=== PATIENT | female | born 2005 | race Caucasian/White ===

== ENCOUNTER 2023-02-05 05:26 | Emergency (ER) | payer OTHER, SELFPAY ==
[2023-02-05 05:27] VITALS: BP 119/81; PULSE 96; RESP 14; TEMP 36.3; O2SAT 100
[2023-02-05] MEDS: LIDOCAINE, EPINEPHRINE, TETRACAINE VISCOUS SOLN 3 ML TOPICAL (07:39)
[2023-02-05] MEDS: KETOROLAC 30 MG/ML VIAL (*BKC) IM (07:39)
[2023-02-05] MEDS: LIDOCAINE HCL 1% LOCAL INJ 10 ML VIAL 20 ML INFILTRATE (07:39)
--- NOTE | 2023-02-05 08:28 | ED.WOUNDLAC ---
HPI - Wound/Laceration General Chief Complaint: Wound/Laceration Stated Complaint: wounds to face Time Seen by Provider: 02/05/23 07:02 History of Present Illness HPI narrative: This is a 17-year-old female, with no significant past medical history, presenting to the emergency department complaining of 2 painful lesions on the face for the past 2 days. Patient states the lesion started small and began growing. She has some pain with raising the eyebrow on the left but denies loss of vision or pain with movement of the eye itself. She denies associated fevers, chills, nausea, vomiting or difficulty breathing. Related Data Allergies Allergy/AdvReac Type Severity Reaction Status Date / Time banana Allergy Unknown Rash Verified 02/05/23 05:45 No Known Allergies Allergy Verified 02/05/23 05:45 Review of Systems Review of Systems: CONSTITUTIONAL: Denies fever, chills, or sweats. CARDIOVASCULAR: Denies chest pain, palpitations, or edema. RESPIRATORY: Denies cough or dyspnea. GASTROINTESTINAL: Denies abdominal pain, nausea, vomiting, or diarrhea. GENITOURINARY: Denies dysuria or hematuria. SKIN: Painful lesions on the left forehead and left cheek denies itching. MUSCULOSKELETAL: Denies back pain, joint pain, or myalgia. NEUROLOGIC: Denies headache, numbness, dizziness, or weakness. PSYCHIATRIC: Denies anxiety or depression. PMFSH Past Medical History Medical History No significant past medical history Surgical History Surgical History No significant past surgical history Social History Social History Smoking status: Never smoker Alcohol intake: never Gender identity (if verbalized by the patient): Female Exam Narrative: GENERAL: Well-developed, well-nourished, and in no acute distress. HEAD: Normocephalic, atraumatic. EYES: PERRLA and EOMI. ENT: Nares clear, no rhinorrhea or epistaxis. Mucous membranes moist. Oropharynx without tonsillar hypertrophy exudate or other lesions. CHEST: Clear to auscultation. No respiratory distress. No wheezes rales or rhonchi HEART: Regular rate and rhythm. No murmur heard. Normal peripheral pulses. ABDOMEN: Soft, nontender, nondistended, normal active bowel sounds. EXTREMITIES: Normal range of motion. No edema. SKIN: 2, tender, erythematous lesions are noted. 1 measuring approximately 2 x 1 cm is noted over the left eyebrow with some induration and erythema. There is a midline lesion, consistent with pustule. A similar 1 x 1 cm lesion is noted over the left cheek. Skin otherwise warm, dry, no rash. NEURO: Alert and oriented x3. Moving all 4 limbs purposefully. PSYCH: Normal mood and affect. Course Course Emergency Course: 08:30 - Abscesses of the face were drained with an 18-gauge needle. Please see procedure note. The patient tolerated procedure well. Will discharge with antibiotics, recommendation for warm compresses and follow-up with primary care in 1 week. Discussed return and emergency precautions including signs/symptoms of meningitis and orbital cellulitis. The patient voiced understanding and is comfortable with the plan. All questions answered to her satisfaction. Vital Signs Vital signs: Vital Signs Temperature 97.4 F L 02/05/23 05:27 Pulse Rate 96 02/05/23 05:27 Respiratory Rate 14 02/05/23 05:27 Blood Pressure 119/81 02/05/23 05:27 Pulse Oximetry 100 02/05/23 05:27 Oxygen Delivery Room Air 02/05/23 05:27 Temperature 97.4 F L 02/05/23 05:27 Pulse Rate 96 02/05/23 05:27 Respiratory Rate 16 02/05/23 09:17 Blood Pressure 119/81 02/05/23 05:27 Pulse Oximetry 100 02/05/23 05:27 Oxygen Delivery Room Air 02/05/23 05:27 Procedures Abscess I/D face: Date of Incision: 02/05/23 Time of Incision: 08:25 Side (if applicabl
[2023-02-05 09:17] VITALS: RESP 16
== END 2023-02-05 09:17 | disposition home or self-care (01) ==
PROVIDERS: Emergency Provider Preventive Medicine Aerospace Medicine; PCP Family Medicine
DX: L02.01 Cutaneous abscess of face (principal)
CPT/HCPCS: 10061; 96372; 99283; J1885

== ENCOUNTER 2023-04-23 22:58 | Emergency (ER) | payer OTHER, SELFPAY ==
[2023-04-23 23:01] VITALS: BP 103/79; PULSE 97; RESP 18; TEMP 36.8; O2SAT 98
[2023-04-23] MEDS: ACETAMINOPHEN 325 MG TABLET 650 MG PO (23:39)
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
--- NOTE | 2023-04-24 01:47 | PC.NURSE ---
DILSHAD nurse notified this RN pt is ready to be d/c. Received voucher from casino change attendant, Melita and gave to pt w discharge instructions.
[2023-04-24 01:49] VITALS: BP 110/73; PULSE 95; RESP 19; O2SAT 100
== END 2023-04-24 01:49 | disposition home or self-care (01) ==
LOC: ANHED 04-24 01:36
PROVIDERS: Emergency Provider Emergency Medicine
DX: T74.21XA Adult sexual abuse, confirmed, initial encounter (principal); Y07.54 Acquaintance or friend, perpetrator of maltreatment and neglect
CPT/HCPCS: 99285; A9270

== ENCOUNTER 2023-09-06 12:25 | Emergency (ER) | payer OTHER, SELFPAY ==
[2023-09-06 12:44] VITALS: BP 104/63; PULSE 92; RESP 16; TEMP 36.2; O2SAT 100
[2023-09-06] MEDS: ONDANSETRON HCL ODT 4 MG TABLET 8 MG SUBLINGUAL (13:00)
--- NOTE | 2023-09-06 13:09 | ED.URI ---
HPI - URI/Sore Throat General Chief Complaint: Upper Respiratory Infection Stated Complaint: Bodyaches,Vomiting,Fever,Diarrhea,Chills Time Seen by Provider: 09/06/23 12:51 Source: patient and RN notes reviewed Mode of arrival: ambulatory Limitations: no limitations History of Present Illness HPI Narrative: Patient presents today complaining of headache, runny nose, cough, sore throat, body aches, fatigue, vomiting and diarrhea. States symptoms started yesterday, but worsened today. Reports no vomiting yesterday, but 6 episodes today. Denies any blood or mucus in her stool. States she has been taking some DayQuil with mild relief. Reports she has not tried to keep any fluids down in between her vomiting episodes. Reports she had a telemedicine visit this morning dad was started on amoxicillin presumably for strep throat. She has had 1 dose prior to arrival. Related Data Home Medications Medication Instructions Recorded Confirmed cholecalciferol (vitamin D3) 1,250 1,250 mcg PO WEEKLY 09/06/23 09/06/23 mcg (50,000 unit) capsule citalopram 10 mg tablet 10 mg PO DAILY 09/06/23 09/06/23 fluoxetine 40 mg capsule 40 mg PO DAILY 09/06/23 09/06/23 levonorgestrel 17.5 mcg/24 hrs See Rx Instructions .Route .COMPLEX 09/06/23 09/06/23 (5yrs) 19.5mg intrauterine device (Kyleena) Allergies Allergy/AdvReac Type Severity Reaction Status Date / Time banana AdvReac Mild Rash Verified 09/06/23 12:35 Review of Systems Review of Systems: CONSTITUTIONAL: + body aches, fatigue EYES: Denies visual changes, redness, or discharge. ENT: Denies congestion, or otalgia.+ rhinorrhea, sore throat CARDIOVASCULAR: Denies chest pain, palpitations, or edema. RESPIRATORY: Denies dyspnea.+ cough GASTROINTESTINAL: Denies abdominal pain. + nausea, vomiting, diarrhea GENITOURINARY: Denies dysuria or hematuria. SKIN: Denies rash, itching, or wounds. MUSCULOSKELETAL: Denies back pain, joint pain, or myalgia. NEUROLOGIC: Denies numbness, tingling, or weakness.+ headache PSYCH: Denies depression or anxiety. [facility] Past Medical History Medical History No significant past medical history Surgical History Surgical History No significant past surgical history Social History Social History Smoking status: Never smoker Alcohol intake: never Gender identity (if verbalized by the patient): Female Comments At time of signature, I have reviewed and agree with nursing past medical, surgical, social and family history unless otherwise noted. Please see nursing chart for further information. There is no relevant family history pertinent to the presenting complaint Exam Narrative: GENERAL: Mildly ill-appearing, well-nourished, and in no acute distress. HEAD: Normocephalic, atraumatic. EYES: EOMI. No redness or drainage. Conjunctivae normal. ENT: Mucous membranes pink and moist. Nares clear. No rhinorrhea. TMs normal bilaterally. Throat normal. Uvula midline. NECK: Normal AROM. Supple. No lymphadenopathy. CHEST: No respiratory distress. Clear to auscultation. HEART: Regular rate and rhythm. No murmur appreciated. ABDOMEN: Soft, nontender, nondistended, normal active bowel sounds. EXTREMITIES: Normal range of motion. No edema. SKIN: Warm, dry, no rash. Capillary refill normal. Normal skin turgor. NEURO: No focal deficits. Alert and oriented x3. Gait steady. PSYCH: Normal affect. No signs of depression or anxiety. Course Course Level of Care: Express Care Visit Vital Signs Vital signs: Vital Signs Temperature 97.2 F L 09/06/23 12:44 Pulse Rate 92 09/06/23 12:44 Respiratory Rate 16 09/06/23 12:44 Blood Pressure 104/63 09/06/23 12:44 Pulse Oximetry 100 09/06/23 12:44 Oxygen Delivery Room Air 09/06/23 12:44 [place]
== END 2023-09-06 13:28 | disposition home or self-care (01) ==
PROVIDERS: Emergency Provider Nurse Practitioner
DX: B34.9 Viral infection, unspecified (principal); Z20.822 Contact with and (suspected) exposure to COVID-19
CPT/HCPCS: 87081; 87426; 87804; 87880; 99213; A9270; G0463

== ENCOUNTER 2023-12-11 08:37 | Emergency (ER) | payer SELFPAY ==
--- NOTE | ~2023-12-11 | XR_ITS ---
XR abdomen/kub 1V Ordering provider: Paula Montalvo NP History: . IUD placement, ABD pain . Comparison: None. FINDINGS: BOWEL: Nonobstructive bowel gas pattern. ORGANOMEGALY: None. SIGNIFICANT PATHOLOGIC CALCIFICATIONS: None. OTHER: IUD is seen in the uterus. No free air is seen under the diaphragm. Attempt of lumbarization of S1. IMPRESSION: NO ACUTE ABDOMINAL FINDINGS. Reviewed, dictated and finalized at location A.
[2023-12-11 08:50] VITALS: BP 122/73; PULSE 92; RESP 16; TEMP 36.7; O2SAT 100
--- NOTE | 2023-12-11 09:07 | ED.ABDPAIN ---
HPI - Abdominal Pain General Chief Complaint: Abdominal Pain Stated Complaint: Stomach pain Time Seen by Provider: 12/11/23 09:07 Source: patient and family Mode of arrival: ambulatory Limitations: no limitations History of Present Illness HPI narrative: 18 yo F presents with c/o loose stools for several months. Approx. 8 months. Thinks symptoms started after IUD placed. C/o umbilical ABD cramping, worse after eating. Intermitent nausea. Occasional vomiting. about 4 times over he past 3 months . No blood in stool. Denies weight loss. No urinary symptoms. Lost health insurance and unable to see her PCP. All systems reviewed and negative except as noted above. Related Data Home Medications Medication Instructions Recorded Confirmed levonorgestrel 17.5 mcg/24 hr (up See Rx Instructions .Route .COMPLEX 09/06/23 12/11/23 to 5 yrs) 19.5mg intrauterine device (Kyleena) Allergies Allergy/AdvReac Type Severity Reaction Status Date / Time banana Allergy Mild Rash Verified 12/11/23 08:52 Review of Systems Review of Systems: CONSTITUTIONAL: Denies fever, chills, or sweats. EYES: Denies visual changes, redness, or discharge. ENT: Denies rhinorrhea, congestion, sore throat, or otalgia. CARDIOVASCULAR: Denies chest pain, palpitations, or edema. RESPIRATORY: Denies cough or dyspnea. GASTROINTESTINAL: Reports umbilical abdominal pain, nausea, vomiting, loose stools GENITOURINARY: Denies dysuria or hematuria. SKIN: Denies rash or itching. MUSCULOSKELETAL: Denies back pain, joint pain, or myalgia. NEUROLOGIC: Denies headache, numbness, or weakness. PSYCHIATRIC: Denies anxiety or depression. All other systems reviewed are negative, except as documented in HPI. [facility] Past Medical History Medical History No significant past medical history Surgical History Surgical History No significant past surgical history Social History Social History Smoking status: Never smoker Alcohol intake: never Gender identity (if verbalized by the patient): Female Comments At time of signature, agree with nursing past medical, surgical, social and family history. There is no relevant family history pertinent to the presenting complaint. Exam Narrative: GENERAL: This is a well-nourished, well-developed patient, in no apparent distress. HEAD: normocephalic, atraumatic. EYES: PERRL. Sclera clear/white. Vision is grossly intact. EARS: External ears normal NOSE: External nose normal NECK: Neck supple, non-tender without lymphadenopathy, masses or thyromegaly. CARDIOVASCULAR: Regular rate and rhythm without murmurs, gallops, or rubs. RESPIRATORY: Clear to auscultation. Breath sounds equal bilaterally. No wheezes, rales, or rhonchi. GASTROINTESTINAL: Abdomen soft, tenderness umbililcal aspect, nondistended. Bowel sounds are hyperactive. No hepato-splenomegaly, or palpable masses. No guarding. SKIN: warm, Dry, intact with no suspicious lesions or rash, good texture and turgor. NEURO: awake, alert, and oriented to person, place and time. There were no obvious focal neurologic abnormalities. EXTREMITIES: No joint tenderness, effusion, or edema noted. Course Course Level of Care: Express Care Visit Vital Signs Vital signs: Vital Signs Temperature 36.7 C 12/11/23 08:50 Pulse Rate 92 12/11/23 08:50 Respiratory Rate 16 12/11/23 08:50 Blood Pressure 122/73 12/11/23 08:50 Pulse Oximetry 100 12/11/23 08:50 Oxygen Delivery Room Air 12/11/23 08:50 Temperature 36.7 C 12/11/23 08:50 Pulse Rate 92 12/11/23 08:50 Respiratory Rate 16 12/11/23 08:50 Blood Pressure 122/73 12/11/23 08:50 Pulse Oximetry 100 12/11/23 08:50 Oxygen Delivery Room Air 12/11/23 08:50 reviewed MDM - Abdominal Pain MDM Narrative Me
== END 2023-12-11 09:49 | disposition home or self-care (01) ==
PROVIDERS: Emergency Provider Nurse Practitioner Family; PCP Emergency Medicine
DX: R10.33 Periumbilical pain (principal); R19.7 Diarrhea, unspecified
CPT/HCPCS: 74018; 99213; G0463

== ENCOUNTER 2024-05-27 20:09 | Outpatient (RCR) | payer OTHER, SELFPAY ==
[2024-05-27 20:38] VITALS: BMI 24.2
[2024-05-27] MEDS: ONDANSETRON HCL ODT 4 MG TABLET PO (20:44)
[2024-05-27 21:17] LABS: Add Urine Microscopic? YES; Appearance Urine Cloudy (Clear); Bacteria Urine None Seen /hpf; Bilirubin Urine Negative (Negative); Blood Urine Negative (Negative); Color Urine Yellow (Yellow); Glucose Urine UA Negative (Negative); Ketones Urine Negative (Negative); Leukocyte Esterase Ur Negative LEU/UL (Negative); Nitrate Urine Negative (Negative); Non Pathogenic Casts 0-2; Protein Urine Negative (Negative); RBC Urine 0-2 /hpf (0-2); Specific Grav Ur 1.011 (1.001-1.035); Squamous Epithelial Cell Urine Few /hpf (Few); Urobilinogen Urine 0.2 mg/dL (<2.0); WBC Urine 0-5 /hpf (0-3); pH Urine 6.5 (5.0-9.0)
== END 2024-08-25 23:59 | disposition home or self-care (01) ==
LOC: ANHOBOP 20:09
PROVIDERS: Obstetrics & Gynecology; PCP Emergency Medicine; Visit Provider Obstetrics & Gynecology
DX: O26.899 Other specified pregnancy related conditions, unspecified trimester (principal); R10.9 Unspecified abdominal pain; Z3A.00 Weeks of gestation of pregnancy not specified
CPT/HCPCS: 81001; A9270

== ENCOUNTER 2024-06-23 23:27 | Observation (INO) | payer OTHER, SELFPAY ==
[2024-06-23 23:35] VITALS: BP 106/65; PULSE 90; PULSE 92; O2SAT 97
[2024-06-23 23:40] VITALS: PULSE 95; O2SAT 98
[2024-06-23 23:45] VITALS: PULSE 93; O2SAT 98
[2024-06-23 23:50] VITALS: PULSE 93; O2SAT 99
[2024-06-23 23:55] VITALS: PULSE 93; O2SAT 98
[2024-06-24 00:12] VITALS: BP 74/43; PULSE 94
[2024-06-24 00:14] VITALS: BP 102/59; PULSE 93
[2024-06-24 00:16] VITALS: BP 94/59; PULSE 91
[2024-06-24 00:20] LABS: Add Urine Microscopic? NO; Appearance Urine Clear (Clear); Bilirubin Urine Negative (Negative); Blood Urine Negative (Negative); Color Urine Yellow (Yellow); Glucose Urine UA Negative (Negative); Ketones Urine Negative (Negative); Leukocyte Esterase Ur Negative LEU/UL (Negative); Nitrate Urine Negative (Negative); Protein Urine Negative (Negative); Specific Grav Ur 1.006 (1.001-1.035); Urobilinogen Urine 0.2 mg/dL (<2.0)
--- NOTE | 2024-06-24 00:29 | OBADM ---
This patient, Gabriela Elias, admitted to the OB room OB Post 115 for observation. Patient/family oriented to hospital policies and general routines including ID bracelet, bed and alarms, visiting hours, pain management, procedures, bathroom and other care routines, personal items, smoking policy, room service/diet, and visiting hours. Patient/Family are encouraged to report perceived risks to care and to ask questions if they do not understand what they are told or what they should do.
[2024-06-24 00:31] VITALS: BP 90/57; PULSE 99
[2024-06-24 00:44] VITALS: BP 106/65; PULSE 90
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
--- OUTSIDE RECORDS SUMMARY | 2024-06-25 20:46 | XMS_ITS | Encounter Summary ---
Author Organization [facility] - [facility] Address [address] [place] [address] [place] [address] Care Team Providers Care Toggler Name Role Phone Romina Brown OPTICAL MECHANIC Primary Care Provider Unav ailable Ronaldo Treviño MD Primary Care Provider [phone] Erica Cabrera PA-C Primary Care Provider [phone] Encounter Details Date Type Department Care Team (Late st Contact Info) Description 08/17/2017 Abstract [facility] CON[facility] [address] [place] [address] , Generic MD Monique Social History Tobacco Use Types Packs/Day Years Used Date Smoking Tobacco: Never Assessed Comments Unknown Sex and Gender Information Value Date Recorded Sex Assigned at Not on file Legal Sex Female 10:45 PM PIANO TECHNICIAN Gender Identity Not on file Sexual Orientation Not on file documented as of this encounter Plan of Treatment Not on file documented as of this encounter Visit Diagnoses Not on filedocumented in this encounter Additional Health Concerns Infection Onset Date Last Indicated Resolved Time COVID-19 Rule Out 11/26/2022 11/26/2022 11/26/2022 9:32 AM CDT documented as of this encounter Care Teams Toggler Relationship Specialty Start Date End Date Romina Brown NP PCP - General NURSE PRACTITIONER 08/19/20 04/03/21 [place] [address] [place] [address] PCP - General FAMILY PRACTICE 04/04/21 06/25/23 Erica Cabrera PA-C [address] [address] PCP - General PHYSICIAN REGISTERED NURSE SUPERVISOR 06/26/23 documented as of this encounter
--- OUTSIDE RECORDS SUMMARY | 2024-06-25 20:46 | XMS_ITS | Encounter Summary ---
Author Organization [facility] Address [address] [facility] [place], [place] [address] [place] [id number] Care Team Providers Care Pens And Pencils Repairer Name Role Phone Erica Cabrera PA-C Primary Care Provider [phone] Encounter Details Date Type Department Care Team (Late st Contact Info) Description 07/04/2023 Getting-in Message Enc [facility] Medical [facility] Family & Internal Medicine [facility] [id number] [place] [phone] Erica Cabrera PA-C [address] [place] [id number] Test results. Social History Tobacco Use Types Packs/Day Years Used Date Smoking Tobacco: Never Passive Smoke Exposure: Never Smokeless Tobacco: Never Comments:no hx tobacco Alcohol Use Standard Drinks/Week Comments Never 0 (1 standard drink = 0.6 oz pur e alcohol) AUDIT-C Answer Date Recorded Q1: How often do you have a drink containing alc ohol? Never 08/19/2020 Average Number of Drinks Not on file 021 Frequency of Binge Drinking Not on file 08/01 PHQ-2 Answer Date Recorded Patient Health Questionnaire-2 Score 3 05/14/2023 Comments No Sex and Gender Information Value Date Recorded Sex Assigned at Not on file Legal Sex Female 10:45 PM LOUVER DOOR ASSEMBLER Gender Identity Not on file Sexual Orientation Not on file documented as of this encounter Progress Notes * iJnny Peters RN - 07/09/2023 1:34 PM CST Patient made aware of her results on 07/05/2023 ER DOOR ASSEMBLER documented in this encounter Plan of Treatment Not on file documented as of this encounter Visit Diagnoses Not on filedocumented in this encounter Additional Health Concerns Assessment Noted Time PHQ-9 Depression Total Score: 7 05/14/20 23 7:37 AM LOUVER DOOR ASSEMBLER documented as of this encounter Care Teams Pens And Pencils Repairer Relationship Specialty Start Date End Date Erica Cabrera PA-C [address] [place] [address] PCP - General PHYSICIAN LOCOMOTIVE OPERATOR 06/26/23 documented as of this encounter
--- OUTSIDE RECORDS SUMMARY | 2024-06-25 20:46 | XMS_ITS | Clinical Summary ---
Author Organization [facility] Address [address] [facility] [place] [address] [place] [address] Care Team Providers Care Clerk Checker Name Role Phone Erica Cabrera PA-C Primary Care Provider Allergies No known active allergies Medications hydrOXYzine (VISTARIL) 25 MG capsuleIndications :Anxiety Take 1 capsule (25 mg total) by mouth 3 (three) times daily as needed for Anxiety. 30 capsule 05/14/20 23 Active levonorgestrel (KYLEENA) 19.5 MG IUD 1 each (19.5 mg total) by Intrauterine route once. Placed by AIRPORT RAMP ATTENDANT at [facility] Active FLUoxetine (PROZAC) 40 MG capsuleIndications :Anxiety,PTSD (post-traumatic stress disorder),Depressi on, unspecified depression type Take 1 capsule (40 mg total) by mouth daily. 90 capsule 06/26/19 24 Active lidocaine (XYLOCAINE) 5 % ointmentIndication s:Anal fissure Apply topically daily. 35 g 1 07/01/19 24 Active hydrocortisone 2.5 % creamIndications:H emorrhoids, unspecified hemorrhoid type Apply topically 2 (two) times daily. 28 g 1 07/01/19 24 Active ondansetron (ZOFRAN-ODT) 4 MG disintegrating tabletIndications: Nausea Take 1 tablet (4 mg total) by mouth every 8 (eight) hours as needed for Nausea. 20 tablet 07/31/19 24 Active vitamin D3, cholecalciferol, 1.25 mg capsuleIndications :Vitamin D deficiency Take 1 capsule (50,000 Units total) by mouth once a week. 8 capsule 08/06/19 24 Active fluconazole (DIFLUCAN) 150 MG tabletIndications: Vaginal discharge Take 1 tablet (150 mg total) by mouth every other day. 2 tablet 08/06/19 24 Active citalopram (CELEXA) 10 MG tabletIndications: Current severe episode of major depressive disorder without psychotic features without prior episode ([facility]) TAKE 1 TABLET BY MOUTH EVERY DAY 90 tablet 1 08/22/19 24 Active Active Problems Problem Noted Date Diagnosed Date Anxiety 05/14/2023 PTSD (post-traumatic stress disorder) 05/14/2023 Depression, unspecified depression type 05/14/20 23 Immunizations Name Administration Dates Next Due Dtap 09/21/2008, 5,03/08/2004,01/12/2004,2003 Hepatitis B Pediatric 06/13/2004,2003 Hib 12/14/2004,03/08/2004,01/12/2004 ,2003 Hib (Generic) 12/14/2004,03/08/2004,01/12/2004 ,2003 Influenza (Generic) 04/18/2010,03/15/2005,2003 Influenza Adult (Generic) 03/18/2015,02/26/2013 MMR 09/21/2008,09/12/2004 Menactra 03/18/2015 Meningococcal (Menactra) 02/25/2021 Pneumococcal (Prevnar 7) 09/12/2004,03/08/2004,0 01/12/2004,2003 Polio IPV (Ipol) 09/21/2008,06/13/2004, 4,2003 Tdap (Generic) 03/18/2015 Varicella Vaccine 09/21/2008,09/12/2004 Family History Medical History Relation Comments Eczema Father Diabetes Maternal Grandfather type 2 Diabetes Maternal Grandmother type 2 Hypertension Maternal Grandmother Depression Mother acid reflux Mother No Known Problems Paternal Grandfather Bipolar Paternal Grandmother Relation Status Comments Father Alive Maternal Grandfather Alive Maternal Grandmother Alive Mother Alive Paternal Grandfather Alive Paternal Grandmother Alive Social History Tobacco Use Types Packs/Day Years Used Date Smoking Tobacco: Never Passive Smoke Exposure: Never Smokeless Tobacco: Never Tobacco Cessation:Counseling Given: No Comments:no hx tobacco Alcohol Use Standard Drinks/Week Comments Never 0 (1 standard drink = 0.6 oz pur e alcohol) AUDIT-C Answer Date Recorded Q1: How often do you have a drink containing alc ohol? Never 08/19/2020 Average Number of Drinks Not on file 021 Frequency of Binge Drinking Not on file 08/01 PHQ-2 Answer Date Recorded Patient Health Questionnaire-2 Score 6 07/31/2023 Comments No Sex and Gender Information Value Date Recorded Sex Assigned at Not on file Legal Sex Female 10:45 PM PATIENT TRANSITION SPECIALIST Gender Identity Not on file Sexual Orientation Not on file Last Filed Vital Signs Vital Sign Reading Time Taken Comments Blood Pressure 98/67 07/31/2023 11:20 AM PATIENT TRANSITION SPECIALIST Pulse 80 07/31/2023 11:20 AM PATIENT TRANSITION SPECIALIST Temperature 36.4 ??C (97.6 ??F) 07/31/2023 1 1:20 AM PATIENT TRANSITION SPECIALIST Respiratory Rate 16 07/31/2023 11:2 0 AM PATIENT TRANSITION SPECIALIST Oxygen Saturation 96% 07/31/2023 11: 20 AM PATIENT TRANSITION SPECIALIST Inhaled Oxygen Concentration - - Weight 53.4 kg (117 lb 12.8 oz) 024 11:20 AM PATIENT TRANSITION SPECIALIST Height 160 cm (5' 3 ) 07/31/2023 11:20 AM PATIENT TRANSITION SPECIALIST Body Mass Index 20.87 07/31/2023 11:20 AM PATIENT TRANSITION SPECIALIST Plan of Treatment Health Maintenance Due Date Last Done Comments Hepatitis B Vaccines (3 of 3 - 3-dose series) 08/08/2004 06/13/2004, 2003 HPV Vaccines (1 - 3-dose series) 09/09/2018 Meningococcal B Vaccine (1 of 2 - Standard) 2019 COVID-19 Vaccine ( - season) 2024 Influenza Adult (#1) 2024 03/18/2015, 02/26/2013, 04/18/2010, Additional history exists Annual Physical 06/26/2024 06/26/2023 PHQ-2 (Physician Ada) 07/31/2024 07/31/2023 DTaP, Tdap and Td Vaccines (7 - Td or Tdap) 03/18/2025 03/18/2015, 09/21/2008, 12/14/2004, Additional history exists Pneumococcal Vaccine: Pediatrics (0 to 5 Years) and At-Risk Patients (6 to 64 Years) Aged Out 09/12/2004, 03/08/2004, 01/12/2004, Additional history exists No longer eligible based on patient's age to complete this topic Meningococcal Vaccine Completed 02/25/2021, 015 Hepatitis C Completed 07/31/2023 RSV Immunizations Under 20 Months Aged Out No longer eligible based on patient's age to complete this topic Procedures Procedure Name Priority Date/Time Associated Diagnosis Comments HEPATITIS PANEL,ACUTE Routine 07/31/2023 12:14 PM PATIENT TRANSITION SPECIALIST Screening examination for STD (sexually transmitted disease) from Last 3 Months or Most Recently Relevant to Health Maintenance Results * HEPATITIS PANEL,ACUTE (07/31/2023 12:14 PM PATIENT TRANSITION SPECIALIST) HAV IGM NON-REACT GISELL NON-REACT GISELL [facility] Comment: For additional information, please refer to http://SimpleSite.Haztucesta/faq/AIG302 (This link is being provided for informational/ educational purposes only.) HEPATITIS B SURFACE AG NON-REACT GISELL NON-REACT GISELL [facility] Comment: For additional information, please refer to http://Mogotest/faq/AHM200 (This link is being provided for informational/ educational purposes only.) HEP B CORE IGM NON-REACT GISELL NON-REACT GISELL [facility] Comment: For additional information, please refer to http://SimpleSite.Haztucesta/faq/VSJ174 (This link is being provided for informational/ educational purposes only.) HEPATITIS C AB NON-REACT GISELL NON-REACT GISELL [facility] Comment: HCV antibody was non-reactive. There is no laboratory evidence of HCV infection. In most cases, no further action is required. However, if recent HCV exposure is suspected, a test for HCV RNA (test code 71923) is suggested. For additional information please refer to http://SimpleSite.Haztucesta/faq/APG93k5 (This link is being provided for informational/ educational purposes only.) 07/31/2023 12:1 4 PM PATIENT TRANSITION SPECIALIST 08/01/2023 4:04 AM PATIENT TRANSITION SPECIALIST Narrative Resulting Agency Comment Performing Organization Information: ?Site ID: [id number] ?[facility] ?Address: [id number] [place] [address] [place] [address] ?Director: Bridget Osborne MD us Erica Cabrera PA-C LABORATORY Final Result [facility] [employer] [facility] [address] [place], [place] [address] from Last 3 Months or Most Recently Relevant to Health Maintenance Care Teams Clerk Checker Relationship Specialty Start Date End Date Erica Cabrera PA-C [address] [facility] [address] [place] [address] PCP - General PHYSICIAN INSPECTOR TOYS 06/26/23
--- OUTSIDE RECORDS SUMMARY | 2024-06-25 20:46 | XMS_ITS | Encounter Summary ---
Author Organization [facility] Address [address] [facility] [place], [place] [address] [place] [address] Care Team Providers Care Quality Control Clerk Name Role Phone Erica Cabrera PA-C Primary Care Provider [phone] Encounter Details Date Type Department Care Team (Late st Contact Info) Description 07/12/2023 [employer] Message Enc [facility] Medical Group Family & Internal Medicine [facility] [id number] [place] [phone] Erica Cabrera PA-C [address] [place] [phone] Bowel issue Social History Tobacco Use Types Packs/Day Years [...] on file Legal Sex Female 10:45 PM FRESCO ARTIST Gender Identity Not on file Sexual Orientation Not on file documented as of this encounter Progress Notes * Jayshree Tinoco RN - 07/24/2023 9:01 AM CST Pt has responded via [employer] message. CO ARTIST * Jayshree Tinoco RN - 07/23/2023 4:16 PM CST Sent a [employer] message to the pt asking how she was doing. CO ARTIST * Erica Cabrera PA-C - 07/15/2023 12:07 PM CST I believe when she saw Prisca on 06/26/2023 she was doing okay on the fluoxetine 20 mg daily. This wasincreased to 40 mg daily. Could you please verify with Gabriela whether or not she had any symptoms on the 20 mg dosage? If she did not have any symptoms with the 20 mg dosage we can try decreasing hermedication to 20 mg. However if she has been doing okay with the 40 mg dosage on 06/26/2023 until tod ay and only recently started getting other symptoms she more likely has a viral infection. CO ARTIST * Jinny Peters RN - 07/15/2023 11:55 AM CST Prozac recently ordered. CO ARTIST documented in this encounter Plan of Treatment Not on file documented as of this encounter Visit Diagnoses Not on filedocumented in this encounter Additional Health Concerns Assessment Noted Time PHQ-9 Depression Total Score: 7 05/14/20 23 7:37 AM FRESCO ARTIST documented as of this encounter Care Teams Quality Control Clerk Relationship Specialty Start Date End Date Erica Cabrera PA-C [address] [place] [address] PCP - General PHYSICIAN HOIST WORKER 06/26/23 documented as of this encounter
--- OUTSIDE RECORDS SUMMARY | 2024-06-25 20:46 | XMS_ITS | Clinical Summary ---
Author Organization [facility] Address [address] [place] [address] Care Team Providers Care Rfid Developer Name Role Phone Helen Medrano MD Primary Care Provider + Allergies Active Allergy Reactions Criticality Noted Date Comments Banana Hives Medium 01/01/2024 Medications vit 90-orhq-gwbtq-dh a 27mg iron- 800 mcg-250 mg capsule [...] Recommend colten to help ease nausea. Contact limnologist for further instructions if nausea continues. Discussed preggy pop drops as well to help ease nausea. Will send zofran to patient pharmacy 20 tablets, follow up with SHAFT HEADMAN for continued instructions. Anxiety 05/14/2023 Depression 05/14/2023 PTSD (post-traumatic stress disorder) 05/14/2023 Ankle pain, right 10/01/2017 Encounters Date Type Department Care Team Description 04/13/2024 2:15 PM FOOD SERVICE UTILITY WORKER Office Visit [facility] Medical Group [facility]ient [facility] at [address] [address] Kirstin Johnson NP Nausea and vomiting of , antepartum (Primary Dx) from Last 3 Months Surgical History Surgery Date Site/Laterality Comments WISDOM TOOTH EXTRACTION Medical History Medical History Date Comments Migraines Social History Tobacco Use Types Packs/Day Years [...] on file Sexual Orientation Not on file Obstetrics History Para Term AB IAB SAB Ectopic Multiple Livin g Live Births 0 0 0 0 0 0 0 0 0 0 0 Last Filed Vital Signs Vital Sign Reading Time Taken Comments Blood Pressure 111/72 04/13/2024 2:15 PM FOOD SERVICE UTILITY WORKER Pulse 94 04/13/2024 2:15 PM FOOD SERVICE UTILITY WORKER Temperature 36.4 ??C (97.6 ??F) 04/13/2024 2:15 PM CS T Respiratory Rate 20 04/13/2024 2:15 PM FOOD SERVICE UTILITY WORKER Oxygen Saturation 99% 04/13/2024 2:15 PM FOOD SERVICE UTILITY WORKER Inhaled Oxygen Concentration - - Weight 55.4 kg (122 lb 1.6 oz) 04/13/2024 2:15 P M FOOD SERVICE UTILITY WORKER Height 160 cm (5' 2.99 ) 04/13/2024 2:15 PM FOOD SERVICE UTILITY WORKER Body Mass Index 21.63 04/13/2024 2:15 PM FOOD SERVICE UTILITY WORKER Plan of Treatment Health Maintenance Due Date Last Done Comments Chlamydia and Gonorrhea (GC/ CT) Screening 2003 Depression Screening 2003 Hepatitis C Screening 2003 HPV Vaccines (1 - 3-dose series) 09/09/2018 Meningococcal B Vaccine (1 o f 2 - Patient Seeks Protection) 2019 Regular Well Visit/Exam 18-64 09/09/2021 Influenza Vaccine (#1) 2024 5, 02/26/2013, 04/18/2010, Additional history exists DTaP/Tdap/Td Vaccine (7 - Td or Tdap) 03/18/2025 03/18/2015, 09/21/2008, 12/14/2004, Additional history exists Pneumococcal vaccine <65 Completed 005, 03/08/2004, 01/12/2004, Additional history exists Varicella Vaccines Completed 09/21/2008, 09/12/2004 Meningococcal Vaccine Completed 02/25/2021, 015 Procedures Procedure Name Priority Date/Time Associated Diagnosis Comments POCT URINALYSIS DIPSTICK Routine 04/13/2024 3:46 PM FOOD SERVICE UTILITY WORKER Nausea and vomiting of , antepartum from Last 3 Months Results * (ABNORMAL) POCT urinalysis dipstick (04/13/2024 3:46 PM FOOD SERVICE UTILITY WORKER) Color, Urine, POC Yellow Clarity, ur, POC Clear Clear Glucose, ur, POC Negative Negative MG/DL Bilirubin, ur, POC Negative Negative, Small, Moderate, Large Ketones, ur, POC 40.(A) Negative Specific [place], POC 1.030 1.003 - 1.030 Blood, ur, POC Negative Negative pH, ur, POC 6.0 5.0 - 8.0 Protein, ur, POC Negative Negative Urobilinogen, urine, POC 0.2 0.2 - 1.0 mg/dL Nitrite, ur, POC Negative Negative Leukocytes, ur, POC Negative Negative Lot Number [id number] Urine 04/13/2024 3:46 PM FOOD SERVICE UTILITY WORKER Kirstin Johnson BLUEPRINTER POINT OF CARE TEST ORDERABL ES Final Result from Last 3 Months Insurance [facility] Care Teams Rfid Developer Relationship Specialty Start Date End Date Helen Medrano MD PCP - General 10/01/17
--- OUTSIDE RECORDS SUMMARY | 2024-06-25 20:46 | XMS_ITS | Encounter Summary ---
Author Organization [facility] Address [facility] [facility]. [place], [place] [address] [place] [address] Care Team Providers Care Life Skills Teacher Name Role Phone Erica Cabrera PA-C Primary Care Provider [phone] Encounter Details Date Type Department Care Team (Late st Contact Info) Description 07/23/2023 Sch[employer]zer Message Enc [facility] Medical Group Family & Internal Medicine [facility] [id number] [place] [phone] [facility], [facility] Provider FLuoxetine Social History Tobacco Use Types Packs/Day Years [...] on file Legal Sex Female 10:45 PM MODEL MAKING SUPERVISOR Gender Identity Not on file Sexual Orientation Not on file documented as of this encounter Progress Notes * Ashley Kebede RN - 07/30/2023 1:25 PM CST Nurse called and spoke with pt. Appt made for tomorrow L MAKING SUPERVISOR * Erica Cabrera PA-C - 07/30/2023 11:57 AM CST With her symptoms I would recommend decreasing her Prozac to 20 mg daily until office visit. If sheis having severe symptoms she needs to go to the emergency room. Thank you! L MAKING SUPERVISOR * Prisca [place] NP - 07/30/2023 10:32 AM CST Fyi: Patient has appt. 08/07/23. L MAKING SUPERVISOR documented in this encounter Plan of Treatment Not on file documented as of this encounter Visit Diagnoses Diagnosis Anxiety Anxiety state, unspecified PTSD (post-traumatic stress disorder) Posttraumatic stress disorder Depression, unspecified depression type documented in this encounter Additional Health Concerns Assessment Noted Time PHQ-9 Depression Total Score: 7 05/14/20 23 7:37 AM MODEL MAKING SUPERVISOR documented as of this encounter Care Teams Life Skills Teacher Relationship Specialty Start Date End Date Erica Cabrera PA-C [address] [address] PCP - General PHYSICIAN LAY OUT CARPENTER 06/26/23 documented as of this encounter
--- NOTE | 2024-06-26 08:56 | P.PNOB_ITS ---
OB - Triage/Final Diagnosis Visit Information Comments/Additional reasons for admission: I have assessed the risk for this patient, Gabriela Elias, and determined that she would benefit from observation care. Evaluation Laboratory results: Laboratory Tests 06/23/24 23:56 Urine Color Yellow Urine Appearance Clear Urine pH 6.0 Ur Specific Roberts 1.006 Urine Protein Negative Urine Glucose (UA) Negative Urine Ketones Negative Ur Blood (Man) Negative Urine Nitrate Negative Urine Bilirubin Negative Urine Urobilinogen 0.2 Leukocyte Esterase Rfl Negative Final Diagnosis (1) Decreased movement: Code(s): O36.8190 - Decreased movements, unspecified trimester, not applicable or unspecified Status: Acute
== END 2024-06-24 00:38 | disposition home or self-care (01) ==
PROVIDERS: Obstetrics & Gynecology; Admitting Provider Obstetrics & Gynecology; PCP Emergency Medicine; Visit Provider Obstetrics & Gynecology
DX: O36.8120 Decreased fetal movements, second trimester, not applicable or unspecified (principal); Z3A.25 25 weeks gestation of pregnancy
CPT/HCPCS: 59025; 81003; G0378; G0379

== ENCOUNTER 2024-08-14 12:55 | Observation (INO) | payer OTHER, SELFPAY ==
--- NOTE | 2024-08-14 13:00 | OBADM ---
This patient, Gabriela Elias, admitted to the OB room OB Post 116 for observation. Patient/family oriented to hospital policies and general routines including ID bracelet, bed and alarms, visiting hours, pain management, procedures, bathroom and other care routines, personal items, smoking policy, room service/diet, and visiting hours. Patient/Family are encouraged to report perceived risks to care and to ask questions if they do not understand what they are told or what they should do.
--- OUTSIDE RECORDS SUMMARY | 2024-08-14 13:11 | XMS_ITS | Encounter Summary ---
Author Organization [facility] Address [address] [place] [address] Care Team Providers Care Psychiatric Rn Name Role Phone Erica Cabrera PA-C Primary Care Provider [phone] Encounter Details Date Type Department Care Team (Late st Contact Info) Description 07/12/2023 Garena Message Enc [facility] Medical Group Family & Internal Medicine [facility] [address] [place] [phone] Erica Cabrera PA-C [address] [place] [address] Bowel issue Social History Tobacco Use [...] on file Legal Sex Female 10:45 PM METAL FABRICATING SHOP HELPER Gender Identity Not on file Sexual Orientation Not on file documented as of this encounter Progress Notes * Jayshree Tinoco RN - 07/24/2023 9:01 AM CST Pt has responded via [employer] message. L FABRICATING SHOP HELPER * Jayshree Tinoco RN - 07/23/2023 4:16 PM CST Sent a [employer] message to the pt asking how she was doing. L FABRICATING SHOP HELPER * Erica Cabrera PA-C - 07/15/2023 12:07 [...] she more likely has a viral infection. L FABRICATING SHOP HELPER * Jinny Peters RN - 07/15/2023 11:55 AM CST Prozac recently ordered. L FABRICATING SHOP HELPER documented in this encounter Plan of Treatment Not on file documented as of this encounter Visit Diagnoses Not on filedocumented in this encounter Additional Health Concerns Assessment Noted Time PHQ-9 Depression Total Score: 7 05/14/20 23 7:37 AM METAL FABRICATING SHOP HELPER documented as of this encounter Care Teams Psychiatric Rn Relationship Specialty Start Date End Date Erica Cabrera PA-C [address] [place] [address] PCP - General PHYSICIAN WOOL GROWER 06/26/23 documented as of this encounter
--- OUTSIDE RECORDS SUMMARY | 2024-08-14 13:11 | XMS_ITS | Encounter Summary ---
Author Organization [facility] Address [address] [place] [address] Care Team Providers Care Regional Environmental Manager Name Role Phone Erica Cabrera PA-C Primary Care Provider [phone] Encounter Details Date Type Department Care Team (Late st Contact Info) Description 07/23/2023 Alerta[employer] Message [facility] Medical Group Family & Internal Medicine [address] [phone] [facility] Provider FLuoxetine Social History Tobacco Use Types [...] on file Legal Sex Female 10:45 PM COIL MAKER Gender Identity Not on file Sexual Orientation Not on file documented as of this encounter Progress Notes * Ashley Kebede RN - 07/30/2023 1:25 PM CST Nurse called and spoke with pt. Appt made for tomorrow MAKER * Erica Cabrera PA-C - 07/30/2023 11:57 AM CST With her symptoms I would recommend decreasing her Prozac to 20 mg daily until office visit. If sheis having severe symptoms she needs to go to the emergency room. Thank you! MAKER * Prisca [place] NP - 07/30/2023 10:32 AM CST Fyi: Patient has appt. 08/07/23. MAKER documented in this encounter Plan of Treatment Not on file documented as of this encounter Visit Diagnoses Diagnosis Anxiety Anxiety state, unspecified PTSD (post-traumatic stress disorder) Posttraumatic stress disorder Depression, unspecified depression type documented in this encounter Additional Health Concerns Assessment Noted Time PHQ-9 Depression Total Score: 7 05/14/20 23 7:37 AM COIL MAKER documented as of this encounter Care Teams Regional Environmental Manager Relationship Specialty Start Date End Date Erica Cabrera PA-C [address] [place] [address] PCP - General PHYSICIAN PRESS WORKER HELPER 06/26/23 documented as of this encounter
--- OUTSIDE RECORDS SUMMARY | 2024-08-14 13:11 | XMS_ITS | Encounter Summary ---
Author Organization [facility] Address [address] [place] [address] Care Team Providers Care History Card Clerk Name Role Phone Romina Brown FURNACE COMBUSTION TESTER Primary Care Provider Unav ailable Ronaldo Treviño MD Primary Care Provider [phone] Erica Cabrera PA-C Primary Care Provider [phone] Encounter Details Date Type Department Care Team (Late st Contact Info) Description 08/17/2017 Abstract [facility] CONVERSION [address] [place] [address] , Generic ConversionMD Social History Tobacco Use Types Packs/Day Years Used Date Smoking Tobacco: Never Assessed Comments Unknown Sex and Gender Information Value Date Recorded Sex Assigned at Not on file Legal Sex Female 10:45 PM PHOTO FINISH PHOTOGRAPHER Gender Identity Not on file Sexual Orientation Not on file documented as of this encounter Plan of Treatment Not on file documented as of this encounter Visit Diagnoses Not on filedocumented in this encounter Additional Health Concerns Infection Onset Date Last Indicated Resolved Time COVID-19 Rule Out 11/26/2022 11/26/2022 11/26/2022 9:32 AM CDT documented as of this encounter Care Teams History Card Clerk Relationship Specialty Start Date End Date Romina Brown NP PCP - General NURSE PRACTITIONER 08/19/20 04/03/21 [place] [address] [place] [address] PCP - General FAMILY PRACTICE 04/04/21 06/25/23 Erica Cabrera PA-C [address] [address] PCP - General PHYSICIAN PAVER 06/26/23 documented as of this encounter
--- OUTSIDE RECORDS SUMMARY | 2024-08-14 13:11 | XMS_ITS | Encounter Summary ---
Author Organization [facility] Address [address] [place] [address] Care Team Providers Care Mirror Department Supervisor Name Role Phone Erica Cabrera PA-C Primary Care Provider [phone] Encounter Details Date Type Department Care Team (Late st Contact Info) Description 07/04/2023 Loco2 Message Enc [facility] Family [facility] Internal [facility] [id number] [place] [phone] Erica Cabrera PA-C [address] [place] [address] Test results. Social History Tobacco Use [...] on file Legal Sex Female 10:45 PM ENGINEERING LAB TECHNICIAN Gender Identity Not on file Sexual Orientation Not on file documented as of this encounter Progress Notes * Jinny Peters RN - 07/09/2023 1:34 PM CST Patient made aware of her results on 07/05/2023 NEERING LAB TECHNICIAN documented in this encounter Plan of Treatment Not on file documented as of this encounter Visit Diagnoses Not on filedocumented in this encounter Additional Health Concerns Assessment Noted Time PHQ-9 Depression Total Score: 7 05/14/20 23 7:37 AM ENGINEERING LAB TECHNICIAN documented as of this encounter Care Teams Mirror Department Supervisor Relationship Specialty Start Date End Date Erica Cabrera PA-C [address] [place] [address] PCP - General PHYSICIAN EQUINE PHARMACOLOGY TECHNICIAN 06/26/23 documented as of this encounter
--- OUTSIDE RECORDS SUMMARY | 2024-08-14 13:11 | XMS_ITS | Clinical Summary ---
Author Organization [facility] Address [address] [place] [address] Care Team Providers Care Medical Office Manager Name Role Phone Erica Cabrera PA-C Primary Care Provider [phone] Allergies No known active allergies Medications hydrOXYzine (VISTARIL) 25 MG capsuleIndications :Anxiety Take 1 capsule (25 mg total) by mouth 3 (three) times daily as needed for Anxiety. 30 capsule 05/14/20 23 Active levonorgestrel (KYLEENA) 19.5 MG IUD 1 each (19.5 mg total) by Intrauterine route once. 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 ([facility]) TAKE 1 TABLET BY MOUTH EVERY DAY [...] on file Legal Sex Female 10:45 PM FIELD CROP FARM WORKER Gender Identity Not on file Sexual Orientation Not on file Last Filed Vital Signs Vital Sign Reading Time Taken Comments Blood Pressure 98/67 07/31/2023 11:20 AM FIELD CROP FARM WORKER Pulse 80 07/31/2023 11:20 AM FIELD CROP FARM WORKER Temperature 36.4 C (97.6 F) 07/31/2023 11:20 AM FIELD CROP FARM WORKER Respiratory Rate 16 07/31/2023 11:2 0 AM FIELD CROP FARM WORKER Oxygen Saturation 96% 07/31/2023 11: 20 AM FIELD CROP FARM WORKER Inhaled Oxygen Concentration - - Weight 53.4 kg (117 lb 12.8 oz) 024 11:20 AM FIELD CROP FARM WORKER Height 160 cm (5' 3 ) 07/31/2023 11:20 AM FIELD CROP FARM WORKER Body Mass Index 20.87 07/31/2023 11:20 AM FIELD CROP FARM WORKER Plan of Treatment Health Maintenance Due Date Last Done Comments Hepatitis B Vaccines (3 of 3 - 3-dose series) 08/08/2004 06/13/2004, 2003 HPV Vaccines (1 - 3-dose series) 09/09/2018 Meningococcal B Vaccine (1 of 2 - Standard) 2019 COVID-19 Vaccine ( - season) 2024 Influenza Adult (#1) 2024 03/18/2015, 02/26/2013, 04/18/2010, Additional history exists PHQ-2 (Physician Spreckels) 06/03/2024 07/31/2023 Annual Physical 06/26/2024 06/26/2023 DTaP, Tdap and Td Vaccines (7 - [...] Comments HEPATITIS PANEL,ACUTE Routine 07/31/2023 12:14 PM FIELD CROP FARM WORKER Screening examination for STD (sexually transmitted disease) from Last 3 Months or Most Recently Relevant to Health Maintenance Results * HEPATITIS PANEL,ACUTE (07/31/2023 12:14 PM FIELD CROP FARM WORKER) HAV IGM NON-REACT GISELL NON-REACT GISELL [facility] Comment: For additional information, please refer to http://Vsnap/faq/BRV634 (This link is being provided for informational/ educational purposes only.) HEPATITIS B SURFACE AG NON-REACT GISELL NON-REACT GISELL [facility] Comment: For additional information, please refer to http://Vsnap/faq/IAG006 (This link is being provided for informational/ educational purposes only.) HEP B CORE IGM NON-REACT GISELL NON-REACT GISELL [facility] Comment: For additional information, please refer to http://Vsnap/faq/YXY378 (This link is being provided for informational/ educational purposes only.) HEPATITIS C AB NON-REACT GISELL NON-REACT GISELL [facility] Comment: HCV antibody was non-reactive. There is no laboratory evidence of HCV infection. In most cases, no further action is required. However, if recent HCV exposure is suspected, a test for HCV RNA (test code 40812) is suggested. For additional information please refer to http://Spotlight.StreetOwl/faq/RYH53f8 (This link is being provided for informational/ educational purposes only.) 07/31/2023 12:1 4 PM FIELD CROP FARM WORKER 08/01/2023 4:04 AM FIELD CROP FARM WORKER Narrative Resulting Agency Comment Performing Organization Information: Site ID: [id number] Name: [facility] Address: [address] [address] Director: Bridget Osborne MD us Erica Cabrera PA-C LABORATORY Final Result [facility] [employer] [address] [place] [address] from Last 3 Months or Most Recently Relevant to Health Maintenance Care Teams Medical Office Manager Relationship Specialty Start Date End Date Erica Cabrera PA-C [address] [address] PCP - General PHYSICIAN MIX HOUSE OPERATOR 06/26/23
[2024-08-14 13:15] VITALS: BP 111/56; PULSE 111
[2024-08-14 13:30] VITALS: BP 108/63; PULSE 112; BMI 28.4
[2024-08-14 13:45] VITALS: BP 114/69; PULSE 112
[2024-08-14 14:00] VITALS: BP 108/65; PULSE 115
[2024-08-14 14:15] VITALS: BP 107/69; PULSE 102
[2024-08-14 14:30] VITALS: BP 111/66; PULSE 98
[2024-08-14 14:30] LABS: Add Urine Microscopic? NO; Appearance Urine Clear (Clear); Bilirubin Urine Negative (Negative); Blood Urine Negative (Negative); Color Urine Yellow (Yellow); Glucose Urine UA Negative (Negative); Ketones Urine Negative (Negative); Leukocyte Esterase Ur Negative LEU/UL (Negative); Nitrate Urine Negative (Negative); Protein Urine Negative (Negative); Specific Grav Ur 1.007 (1.001-1.035); Urobilinogen Urine 0.2 mg/dL (<2.0)
--- NOTE | 2024-08-18 07:28 | P.PNOB_ITS ---
OB - Triage/Final Diagnosis Visit Information Reason for evaluation: threatened labor Comments/Additional reasons for admission: I have assessed the risk for this patient, Gabreila Elias, and determined that she would benefit from observation care. Evaluation Laboratory results: Laboratory Tests 08/14/24 14:10 Urine Color Yellow Urine Appearance Clear Urine pH 8.0 Ur Specific [place] 1.007 Urine Protein Negative Urine Glucose (UA) Negative Urine Ketones Negative Ur Blood (Man) Negative Urine Nitrate Negative Urine Bilirubin Negative Urine Urobilinogen 0.2 Ur Leukocyte Esterase Negative
== END 2024-08-14 15:24 | disposition home or self-care (01) ==
PROVIDERS: Admitting Provider Obstetrics & Gynecology; PCP Emergency Medicine; Visit Provider Obstetrics & Gynecology
DX: O47.03 False labor before 37 completed weeks of gestation, third trimester (principal); Z3A.32 32 weeks gestation of pregnancy
CPT/HCPCS: 81003; 87086; G0378; G0379

== ENCOUNTER 2024-09-16 10:03 | Outpatient (CLI) | payer OTHER, SELFPAY ==
[2024-09-16] VITALS (11 sets, daily range): BP systolic 120; BP diastolic 73; PULSE 91–112; O2SAT 97–100
--- OUTSIDE RECORDS SUMMARY | 2024-09-16 11:06 | XMS_ITS | Encounter Summary ---
Author Organization [facility] Address [address] [place] [address] Care Team Providers Care Editor Name Role Phone Erica Cabrera PA-C Primary Care Provider [phone] Newton Mcclure MD Primary Care Provider [phone] Encounter Details Date Type Department Care Team (Late st Contact Info) Description 07/12/2023 [employer] Message Enc [facility] Medical Group Family & Internal Medicine [address] [address] Erica Cabrera PA-C [facility] [place] [address] Bowel issue Social History Tobacco Use Types [...] on file Legal Sex Female 10:45 PM GAS APPLIANCE MECHANIC Gender Identity Not on file Sexual Orientation Not on file documented as of this encounter Progress Notes * Jayshree Tinoco RN - 07/24/2023 9:01 AM CST Pt has responded via [employer] message. APPLIANCE MECHANIC * Jayshree Tinoco RN - 07/23/2023 4:16 PM CST Sent a [employer] message to the pt asking how she was doing. APPLIANCE MECHANIC * Erica Cabrera PA-C - 07/15/2023 12:07 [...] she more likely has a viral infection. APPLIANCE MECHANIC * Jinny Peters RN - 07/15/2023 11:55 AM CST Prozac recently ordered. APPLIANCE MECHANIC documented in this encounter Plan of Treatment Not on file documented as of this encounter Visit Diagnoses Not on filedocumented in this encounter Additional Health Concerns Assessment Noted Time PHQ-9 Depression Total Score: 7 05/14/20 23 7:37 AM GAS APPLIANCE MECHANIC documented as of this encounter Care Teams Editor Relationship Specialty Start Date End Date Erica Cabrera PA-C PCP - General PHYSICIAN DIRECTOR OF MIDWIFERY/STAFF MIDWIFE 06/26/23 08/26/24 [place] [address] [place] [address] PCP - General INTERNAL MEDICINE 08/27/24 documented as of this encounter
--- OUTSIDE RECORDS SUMMARY | 2024-09-16 11:06 | XMS_ITS | Encounter Summary ---
Author Organization [facility] Address [address] [place] [address] Care Team Providers Care Regional Forester Name Role Phone Erica Cabrera PA-C Primary Care Provider [phone] Newton Mcclure MD Primary Care Provider [phone] Encounter Details Date Type Department Care Team (Late st Contact Info) Description 07/04/2023 [employer] Message Enc [facility] Medical Group Family & Internal Medicine [address] [address] Erica Cabrera PA-C [facility] [place] [address] Test results. Social History Tobacco Use Types [...] on file Legal Sex Female 10:45 PM PROMOTIONS ASSISTANT SALES MARKETING Gender Identity Not on file Sexual Orientation Not on file documented as of this encounter Progress Notes * Jinny Peters RN - 07/09/2023 1:34 PM CST Patient made aware of her results on 07/05/2023 OTIONS ASSISTANT SALES MARKETING documented in this encounter Plan of Treatment Not on file documented as of this encounter Visit Diagnoses Not on filedocumented in this encounter Additional Health Concerns Assessment Noted Time PHQ-9 Depression Total Score: 7 05/14/20 23 7:37 AM PROMOTIONS ASSISTANT SALES MARKETING documented as of this encounter Care Teams Regional Forester Relationship Specialty Start Date End Date Erica Cabrera PA-C PCP - General PHYSICIAN MEDICAL CLAIMS MANAGER 06/26/23 08/26/24 [place] [address] [place] [address] PCP - General INTERNAL MEDICINE 08/27/24 documented as of this encounter
--- OUTSIDE RECORDS SUMMARY | 2024-09-16 11:06 | XMS_ITS | Encounter Summary ---
Author Organization [facility] Address [address] [place] [address] Care Team Providers Care Chemistry Physics Teacher Name Role Phone oRmina Brown NP Primary Care Provider Unav ailable Ronaldo Treviño MD Primary Care Provider [phone] Erica Cabrera PA-C Primary Care Provider [phone] Newton Mcclure MD Primary Care Provider Encounter Details Date Type Department Care Team (Late st Contact Info) Description 08/17/2017 Abstract [facility] CONVERSION [address] [place] [address] , Generic ConversionMD Social History Tobacco Use Types Packs/Day Years Used Date Smoking Tobacco: Never Assessed Comments Unknown Sex and Gender Information Value Date Recorded Sex Assigned at Not on file Legal Sex Female 10:45 PM COTTON CHOPPER Gender Identity Not on file Sexual Orientation Not on file documented as of this encounter Plan of Treatment Not on file documented as of this encounter Visit Diagnoses Not on filedocumented in this encounter Additional Health Concerns Infection Onset Date Last Indicated Resolved Time COVID-19 Rule Out 11/26/2022 11/26/2022 11/26/2022 9:32 AM CDT documented as of this encounter Care Teams Chemistry Physics Teacher Relationship Specialty Start Date End Date Romina Brown NP PCP - General NURSE PRACTITIONER 08/19/20 04/03/21 [place] [address] [place] [address] PCP - General FAMILY PRACTICE 04/04/21 06/25/23 Erica Cabrera PA-C [address] [place] [address] PCP - General PHYSICIAN CHIEF OF FIELD OPERATIONS 06/26/23 08/26/24 [place] [address] [address] PCP - General INTERNAL MEDICINE 08/27/24 documented as of this encounter
--- OUTSIDE RECORDS SUMMARY | 2024-09-16 11:06 | XMS_ITS | Clinical Summary ---
Author Organization [facility] Address [address] [place] [address] Care Team Providers Care Core Drill Operator Name Role Phone Helen Medrano MD Primary Care Provider + Allergies Active Allergy Reactions Criticality Noted Date Comments Banana Hives Medium 01/01/2024 Medications vit 68-[id number]-dh a 27mg iron- 800 mcg-250 mg capsule [...] Recommend colten to help ease nausea. Contact cherry picker operator for further instructions if nausea continues. Discussed preggy pop drops as well to help ease nausea. Will send zofran to patient pharmacy 20 tablets, follow up with STOCKROOM ASSOCIATE for continued instructions. Anxiety 05/14/2023 Depression 05/14/2023 PTSD (post-traumatic stress disorder) 05/14/2023 Ankle pain, right 10/01/2017 Surgical History Surgery Date Site/Laterality Comments WISDOM [...] Comments Blood Pressure 111/72 04/13/2024 2:15 PM MOTORCYCLE REPAIR SHOP SUPERVISOR Pulse 94 04/13/2024 2:15 PM MOTORCYCLE REPAIR SHOP SUPERVISOR Temperature 36.4 C (97.6 F) 04/13/2024 2:15 PM MOTORCYCLE REPAIR SHOP SUPERVISOR Respiratory Rate 20 04/13/2024 2:15 PM MOTORCYCLE REPAIR SHOP SUPERVISOR Oxygen Saturation 99% 04/13/2024 2:15 PM MOTORCYCLE REPAIR SHOP SUPERVISOR Inhaled Oxygen Concentration - - Weight 55.4 kg (122 lb 1.6 oz) 04/13/2024 2:15 P M MOTORCYCLE REPAIR SHOP SUPERVISOR Height 160 cm (5' 2.99 ) 04/13/2024 2:15 PM MOTORCYCLE REPAIR SHOP SUPERVISOR Body Mass Index 21.63 04/13/2024 2:15 PM MOTORCYCLE REPAIR SHOP SUPERVISOR Plan of Treatment Health Maintenance Due Date Last Done Comments Chlamydia and Gonorrhea (GC/ CT) Screening 2003 Depression Screening 2003 Hepatitis C Screening 2003 HPV Vaccines (1 - 3-dose series) 09/09/2018 Meningococcal B Vaccine (1 o f 2 - Standard) 2019 Regular Well Visit/Exam 18-64 09/09/2021 Influenza Vaccine (#1) 2024 5, 02/26/2013, 04/18/2010, Additional history exists DTaP/Tdap/Td Vaccine (7 - Td or Tdap) 03/18/2025 03/18/2015, 09/21/2008, 12/14/2004, Additional history exists Hepatitis B Screening Completed 06/13/2004 , 2003, 2003 Pneumococcal vaccine <65 Completed 005, 03/08/2004, 01/12/2004, Additional history exists Varicella Vaccines Completed 09/21/2008, 09/12/2004 Meningococcal Vaccine Completed 02/25/2021, 015 Insurance [facility] Care Teams Core Drill Operator Relationship Specialty Start Date End Date Helen Medrano MD PCP - General 10/01/17
--- OUTSIDE RECORDS SUMMARY | 2024-09-16 11:06 | XMS_ITS | Clinical Summary ---
Author Organization [facility] Address [address] [place] [address] Care Team Providers Care Oracle Bpm Developer Name Role Phone Newton Mcclure MD Primary Care Provider [phone] Allergies No known active allergies Medications hydrOXYzine (VISTARIL) 25 MG capsuleIndications :Anxiety Take 1 capsule (25 mg total) by mouth 3 (three) times daily as needed for Anxiety. 30 capsule 05/14/20 23 Active levonorgestrel (KYLEENA) 19.5 MG IUD 1 each (19.5 mg total) by Intrauterine route once. Placed by DIVORCE MEDIATOR at [facility] Active FLUoxetine (PROZAC) 40 MG capsuleIndications :Anxiety,PTSD [...] without psychotic features without prior episode ([facility]) TAKE 1 TABLET BY MOUTH EVERY DAY 90 tablet 1 08/22/19 24 Active Active Problems Problem Noted Date Diagnosed Date Anxiety 05/14/2023 PTSD (post-traumatic stress disorder) 05/14/2023 Depression, unspecified depression type 05/14/20 23 Immunizations Immunization Administration Dates Next Due Dtap 09/21/2008, 5,03/08/2004,01/12/2004,2003 [...] on file Legal Sex Female 10:45 PM ELECTRICAL ENGINEER MEP Gender Identity Not on file Sexual Orientation Not on file Last Filed Vital Signs Vital Sign Reading Time Taken Comments Blood Pressure 98/67 07/31/2023 11:20 AM ELECTRICAL ENGINEER MEP Pulse 80 07/31/2023 11:20 AM ELECTRICAL ENGINEER MEP Temperature 36.4 C (97.6 F) 07/31/2023 11:20 AM ELECTRICAL ENGINEER MEP Respiratory Rate 16 07/31/2023 11:2 0 AM ELECTRICAL ENGINEER MEP Oxygen Saturation 96% 07/31/2023 11: 20 AM ELECTRICAL ENGINEER MEP Inhaled Oxygen Concentration - - Weight 53.4 kg (117 lb 12.8 oz) 024 11:20 AM ELECTRICAL ENGINEER MEP Height 160 cm (5' 3 ) 07/31/2023 11:20 AM ELECTRICAL ENGINEER MEP Body Mass Index 20.87 07/31/2023 11:20 AM ELECTRICAL ENGINEER MEP Plan of Treatment Health Maintenance Due Date Last Done Comments Hepatitis B Vaccines (3 of 3 - 3-dose series) 08/08/2004 06/13/2004, 2003 HPV Vaccines (1 - 3-dose series) 09/09/2018 Meningococcal B Vaccine (1 of 2 - Standard) 2019 COVID-19 Vaccine ( - season) 2024 PHQ-2 (Physician Ione) 06/03/2024 07/31/2023 Annual Physical 06/26/2024 06/26/2023 DTaP, Tdap and Td Vaccines (7 - Td or Tdap) 03/18/2025 03/18/2015, 09/21/2008, 12/14/2004, Additional history exists Pneumococcal Vaccine: Pediatrics (0 to 5 Years) and At-Risk Patients (6 to 49 Years) Aged Out 09/12/2004, 03/08/2004, 01/12/2004, Additional history exists No longer eligible based on patient's age to complete this topic Meningococcal Vaccine Completed 02/25/2021, 015 Hepatitis C Completed 07/31/2023 RSV Immunizations Under 20 Months Aged Out No longer eligible based on patient's age to complete this topic Procedures Procedure Name Priority Date/Time Associated Diagnosis Comments HEPATITIS PANEL,ACUTE Routine 07/31/2023 12:14 PM ELECTRICAL ENGINEER MEP Screening examination for STD (sexually transmitted disease) from Last 3 Months or Most Recently Relevant to Health Maintenance Results * HEPATITIS PANEL,ACUTE (07/31/2023 12:14 PM ELECTRICAL ENGINEER MEP) HAV IGM NON-REACT GISELL NON-REACT GISELL [facility] Comment: For additional information, please refer to http://[employer]/faq/YJN791 (This link is being provided for informational/ educational purposes only.) HEPATITIS B SURFACE AG NON-REACT GISELL NON-REACT GISELL [facility] Comment: For additional information, please refer to http://[employer]/faq/XSF583 (This link is being provided for informational/ educational purposes only.) HEP B CORE IGM NON-REACT GISELL NON-REACT GISELL [facility] Comment: For additional information, please refer to http://[employer]/faq/JZG549 (This link is being provided for informational/ educational purposes only.) HEPATITIS C AB NON-REACT GISELL NON-REACT GISELL [facility] Comment: HCV antibody was non-reactive. There is no laboratory evidence of HCV infection. In most cases, no further action is required. However, if recent HCV exposure is suspected, a test for HCV RNA (test code 57242) is suggested. For additional information please refer to http://Strikeface[employer] ([employer]il[employer])/faq/DWD32q6 (This link is being provided for informational/ educational purposes only.) 07/31/2023 12:1 4 PM ELECTRICAL ENGINEER MEP 08/01/2023 4:04 AM ELECTRICAL ENGINEER MEP Narrative Resulting Agency Comment Performing Organization Information: Site ID: [id number] Name: [facility] Address: [address] [address] Director: Bridget Osborne MD us Erica Cabrera PA-C LABORATORY Final Result [facility] [employer] [facility] [address] [place], [place] [address] from Last 3 Months or Most Recently Relevant to Health Maintenance Care Teams Oracle Bpm Developer Relationship Specialty Start [place] [address] [place] [address] PCP - General INTERNAL MEDICINE 08/27/24
--- OUTSIDE RECORDS SUMMARY | 2024-09-16 11:06 | XMS_ITS | Encounter Summary ---
Author Organization [facility] Address [address] [place] [address] Care Team Providers Care Postdoctoral Fellow Name Role Phone Erica Cabrera PA-C Primary Care Provider [phone] Newton Mcclure MD Primary Care Provider [phone] Encounter Details Date Type Department Care Team (Late st Contact Info) Description 07/23/2023 RoboteX Message Enc [facility] Medical Group Family & Internal Medicine [address] [address] [facility] Provider FLuoxetine Social History Tobacco Use Types [...] on file Legal Sex Female 10:45 PM PARTY PLAN SALES AGENT Gender Identity Not on file Sexual Orientation Not on file documented as of this encounter Progress Notes * Ashley Kebede RN - 07/30/2023 1:25 PM CST Nurse called and spoke with pt. Appt made for tomorrow Y PLAN SALES AGENT * Erica Cabrera PA-C - 07/30/2023 11:57 AM CST With her symptoms I would recommend decreasing her Prozac to 20 mg daily until office visit. If sheis having severe symptoms she needs to go to the emergency room. Thank you! Y PLAN SALES AGENT * Prisca Bruno NP - 07/30/2023 10:32 AM CST Fyi: Patient has appt. 08/07/23. Y PLAN SALES AGENT documented in this encounter Plan of Treatment Not on file documented as of this encounter Visit Diagnoses Diagnosis Anxiety Anxiety state, unspecified PTSD (post-traumatic stress disorder) Posttraumatic stress disorder Depression, unspecified depression type documented in this encounter Additional Health Concerns Assessment Noted Time PHQ-9 Depression Total Score: 7 05/14/20 23 7:37 AM PARTY PLAN SALES AGENT documented as of this encounter Care Teams Postdoctoral Fellow Relationship Specialty Start Date End Date Erica Cabrera PA-C PCP - General PHYSICIAN SIZING MACHINE TENDER 06/26/23 08/26/24 [place] [address] [place] [address] PCP - General INTERNAL MEDICINE 08/27/24 documented as of this encounter
--- OUTSIDE RECORDS SUMMARY | 2024-09-16 11:06 | XMS_ITS | Referral Summary ---
Author Organization [facility] Address [address] [place] [address] Care Team Providers Care Nickel Operator Name Role Phone Helen Medrano MD Primary Care Provider + Allergies Active Allergy Reactions Criticality Noted Date Comments Banana Hives Medium 01/01/2024 Medications vit 24-[id number]-btfiu-dh a 27mg iron- 800 mcg-250 mg capsule [...] Recommend colten to help ease nausea. Contact continuous improvement specialist for further instructions if nausea continues. Discussed preggy pop drops as well to help ease nausea. Will send zofran to patient pharmacy 20 tablets, follow up with INSTRUMENTATION CONTROLS ENGINEER for continued instructions. Anxiety 05/14/2023 Depression 05/14/2023 [...] Comments Blood Pressure 111/72 04/13/2024 2:15 PM THEATRICAL VARIETY AGENT Pulse 94 04/13/2024 2:15 PM THEATRICAL VARIETY AGENT Temperature 36.4 C (97.6 F) 04/13/2024 2:15 PM THEATRICAL VARIETY AGENT Respiratory Rate 20 04/13/2024 2:15 PM THEATRICAL VARIETY AGENT Oxygen Saturation 99% 04/13/2024 2:15 PM THEATRICAL VARIETY AGENT Inhaled Oxygen Concentration - - Weight 55.4 kg (122 lb 1.6 oz) 04/13/2024 2:15 P M THEATRICAL VARIETY AGENT Height 160 cm (5' 2.99 ) 04/13/2024 2:15 PM THEATRICAL VARIETY AGENT Body Mass Index 21.63 04/13/2024 2:15 PM THEATRICAL VARIETY AGENT Plan of Treatment Not on file Insurance [facility] Care Teams Nickel Operator Relationship Specialty Start Date End Date Helen Medrano MD PCP - General 10/01/17
== END 2024-09-16 11:05 | disposition home or self-care (01) ==
LOC: ANHOBOP 10:09 → ANHLDR 10:10
PROVIDERS: PCP Emergency Medicine; Visit Provider Obstetrics & Gynecology
DX: O41.8X90 Other specified disorders of amniotic fluid and membranes, unspecified trimester, not applicable or unspecified (principal)
CPT/HCPCS: 99199

== ENCOUNTER 2024-10-03 09:14 | Observation (INO) | payer OTHER, SELFPAY ==
[2024-10-03 10:00] VITALS: TEMP 36.3
[2024-10-03 11:20] VITALS: TEMP 36.6
--- NOTE | 2024-10-03 11:38 | OBADM ---
This patient, Gabriela Elias, admitted to the OB room Labor/Delivery/Recovery 106 for observation. Patient/family oriented to hospital policies and general routines including ID bracelet, bed and alarms, visiting hours, pain management, procedures, bathroom and other care routines, personal items, smoking policy, room service/diet, and visiting hours. Patient/Family are encouraged to report perceived risks to care and to ask questions if they do not understand what they are told or what they should do.
--- OUTSIDE RECORDS SUMMARY | 2024-10-03 16:29 | XMS_ITS | Encounter Summary ---
Author Organization [facility] Address [address] [place] [address] Care Team Providers Care Outside Plant Engineer Name Role Phone Erica Cabrera PA-C Primary Care Provider [phone] Newton Mcclure MD Primary Care Provider [phone] Encounter Details Date Type Department Care Team (Late st Contact Info) Description 07/23/2023 [email or web address] Message Enc [facility] Medical Group Family & Internal Medicine [address] [address] [facility] Provider FLuoxetine Social History Tobacco [...] on file Legal Sex Female 10:45 PM METEOROLOGY TEACHER Gender Identity Not on file Sexual Orientation Not on file documented as of this encounter Progress Notes * Ashley Kebede RN - 07/30/2023 1:25 PM CST Nurse called and spoke with pt. Appt made for tomorrow OROLOGY TEACHER * Erica Cabrera PA-C - 07/30/2023 11:57 AM CST With her symptoms I would recommend decreasing her Prozac to 20 mg daily until office visit. If sheis having severe symptoms she needs to go to the emergency room. Thank you! OROLOGY TEACHER * Prisca Bruno NP - 07/30/2023 10:32 AM CST Fyi: Patient has appt. 08/07/23. OROLOGY TEACHER documented in this encounter Plan of Treatment Not on file documented as of this encounter Visit Diagnoses Diagnosis Anxiety Anxiety state, unspecified PTSD (post-traumatic stress disorder) Posttraumatic stress disorder Depression, unspecified depression type documented in this encounter Additional Health Concerns Assessment Noted Time PHQ-9 Depression Total Score: 7 05/14/20 23 7:37 AM METEOROLOGY TEACHER documented as of this encounter Care Teams Outside Plant Engineer Relationship Specialty Start Date End Date Erica Cabrera PA-C PCP - General PHYSICIAN SOAKER 06/26/23 08/26/24 [place] [address] [place] [address] PCP - General INTERNAL MEDICINE 08/27/24 documented as of this encounter
--- OUTSIDE RECORDS SUMMARY | 2024-10-03 16:29 | XMS_ITS | Clinical Summary ---
Author Organization [facility] Address [address] [place] [address] Care Team Providers Care Shoulder Boner Name Role Phone Newton Mcclure MD Primary Care Provider [phone] Allergies No known active allergies Medications hydrOXYzine (VISTARIL) 25 MG capsuleIndications :Anxiety Take 1 capsule (25 mg total) by mouth 3 (three) times daily as needed for Anxiety. 30 capsule 05/14/20 23 Active levonorgestrel (KYLEENA) 19.5 MG IUD 1 each (19.5 mg total) by Intrauterine route once. 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) TAKE 1 TABLET BY MOUTH [...] on file Legal Sex Female 10:45 PM HOUSEKEEPING DIRECTOR Gender Identity Not on file Sexual Orientation Not on file Last Filed Vital Signs Vital Sign Reading Time Taken Comments Blood Pressure 98/67 07/31/2023 11:20 AM HOUSEKEEPING DIRECTOR Pulse 80 07/31/2023 11:20 AM HOUSEKEEPING DIRECTOR Temperature 36.4 C (97.6 F) 07/31/2023 11:20 AM HOUSEKEEPING DIRECTOR Respiratory Rate 16 07/31/2023 11:2 0 AM HOUSEKEEPING DIRECTOR Oxygen Saturation 96% 07/31/2023 11: 20 AM HOUSEKEEPING DIRECTOR Inhaled Oxygen Concentration - - Weight 53.4 kg (117 lb 12.8 oz) 024 11:20 AM HOUSEKEEPING DIRECTOR Height 160 cm (5' 3 ) 07/31/2023 11:20 AM HOUSEKEEPING DIRECTOR Body Mass Index 20.87 07/31/2023 11:20 AM HOUSEKEEPING DIRECTOR Plan of Treatment Health Maintenance Due Date Last Done Comments Cervical Cancer Screening Pap Smear (Age 21 to 29) Every 3 Years 2003 Cervical Cancer Screening 2003 Hepatitis B Vaccines (3 of 3 - 3-dose series) 08/08/2004 06/13/2004, 2003 HPV Vaccines (1 - 3-dose series) 09/09/2018 Meningococcal B Vaccine (1 of 2 - Standard) 2019 COVID-19 Vaccine ( - season) 2024 PHQ-2 (Physician [place]) 06/03/2024 07/31/2023 Annual Physical 06/26/2024 06/26/2023 DTaP, [...] Comments HEPATITIS PANEL,ACUTE Routine 07/31/2023 12:14 PM HOUSEKEEPING DIRECTOR Screening examination for STD (sexually transmitted disease) from Last 3 Months or Most Recently Relevant to Health Maintenance Results * HEPATITIS PANEL,ACUTE (07/31/2023 12:14 PM HOUSEKEEPING DIRECTOR) HAV IGM NON-REACT GISELL NON-REACT GISELL [facility] Comment: For additional information, please refer to http://Mundi/faq/CIO531 (This link is being provided for informational/ educational purposes only.) HEPATITIS B SURFACE AG NON-REACT GISELL NON-REACT GISELL [facility] Comment: For additional information, please refer to http://Mundi/faq/OYJ791 (This link is being provided for informational/ educational purposes only.) HEP B CORE IGM NON-REACT GISELL NON-REACT GISELL [facility] Comment: For additional information, please refer to http://Mundi/faq/DKK218 (This link is being provided for informational/ educational purposes only.) HEPATITIS C AB NON-REACT GISELL NON-REACT GISELL [facility] Comment: HCV antibody was non-reactive. There is no laboratory evidence of HCV infection. In most cases, no further action is required. However, if recent HCV exposure is suspected, a test for HCV RNA (test code 38614) is suggested. For additional information please refer to http://Mundi/faq/NYD97r9 (This link is being provided for informational/ educational purposes only.) 07/31/2023 12:1 4 PM HOUSEKEEPING DIRECTOR 08/01/2023 4:04 AM HOUSEKEEPING DIRECTOR Narrative Resulting Agency Comment Performing Organization Information: Site ID: [id number] Name: [facility] Address: [address] [address] Director: Bridget Osborne MD us Erica Cabrera PA-C LABORATORY Final Result [facility] [employer] [facility] [address] [place] [address], DO from Last 3 Months or Most Recently Relevant to Health Maintenance Care Teams Shoulder Boner Relationship Specialty [place] [address] [address] PCP - General INTERNAL MEDICINE 08/27/24
--- OUTSIDE RECORDS SUMMARY | 2024-10-03 16:29 | XMS_ITS | Encounter Summary ---
Author Organization [facility] Address [address] [place] [address] Care Team Providers Care Heel Breaster Name Role Phone Erica Cabrera PA-C Primary Care Provider [phone] Newton Mcclure MD Primary Care Provider [phone] Encounter Details Date Type Department Care Team (Late st Contact Info) Description 07/12/2023 Viptable Message Enc [facility] Medical Group Family & Internal Medicine [address] [address] Erica Cabrera PA-C [facility] [place] [address] Bowel issue Social History Tobacco [...] on file Legal Sex Female 10:45 PM COMMUNITY AFFAIRS DIRECTOR Gender Identity Not on file Sexual Orientation Not on file documented as of this encounter Progress Notes * Jayshree Tinoco RN - 07/24/2023 9:01 AM CST Pt has responded via Viptable message. UNITY AFFAIRS DIRECTOR * Jayshree Tinoco RN - 07/23/2023 4:16 PM CST Sent a DancingAnchovy message to the pt asking how she was doing. UNITY AFFAIRS DIRECTOR * Erica Cabrera PA-C - 07/15/2023 12:07 [...] she more likely has a viral infection. UNITY AFFAIRS DIRECTOR * Jinny Peters RN - 07/15/2023 11:55 AM CST Prozac recently ordered. UNITY AFFAIRS DIRECTOR documented in this encounter Plan of Treatment Not on file documented as of this encounter Visit Diagnoses Not on filedocumented in this encounter Additional Health Concerns Assessment Noted Time PHQ-9 Depression Total Score: 7 05/14/20 23 7:37 AM COMMUNITY AFFAIRS DIRECTOR documented as of this encounter Care Teams Heel Breaster Relationship Specialty Start Date End Date Erica Cabrera PA-C PCP - General PHYSICIAN PEDIATRIC CARE COORDINATOR 06/26/23 08/26/24 [place] [address] [place] [address] PCP - General INTERNAL MEDICINE 08/27/24 documented as of this encounter
--- OUTSIDE RECORDS SUMMARY | 2024-10-03 16:29 | XMS_ITS | Encounter Summary ---
Author Organization [facility] Address [address] [place] [address] Care Team Providers Care Tourist Adviser Name Role Phone Romina Brown NP Primary Care Provider Unav ailable Ronaldo Treviño MD Primary Care Provider [phone] Erica Cabrera PA-C Primary Care Provider [phone] Newton Mcclure MD Primary Care Provider [phone] Encounter Details Date Type Department Care Team (Late st Contact Info) Description 08/17/2017 Abstract [facility] CONVERSION [address] [place] [address] , Generic ConversionMD Social History Tobacco Use Types Packs/Day Years Used Date Smoking Tobacco: Never Assessed Comments Unknown Sex and Gender Information Value Date Recorded Sex Assigned at Not on file Legal Sex Female 10:45 PM HUB CUTTER Gender Identity Not on file Sexual Orientation Not on file documented as of this encounter Plan of Treatment Not on file documented as of this encounter Visit Diagnoses Not on filedocumented in this encounter Additional Health Concerns Infection Onset Date Last Indicated Resolved Time COVID-19 Rule Out 11/26/2022 11/26/2022 11/26/2022 9:32 AM CDT documented as of this encounter Care Teams Tourist Adviser Relationship Specialty Start Date End Date Romina Brown NP PCP - General NURSE PRACTITIONER 08/19/20 04/03/21 [place] [address] [place] [address] PCP - General FAMILY PRACTICE 04/04/21 06/25/23 Erica Cabrera PA-C [address] [place] [address] PCP - General PHYSICIAN DUMP TRUCK DRIVER 06/26/23 08/26/24 [place] [address] [address] PCP - General INTERNAL MEDICINE 08/27/24 documented as of this encounter
--- OUTSIDE RECORDS SUMMARY | 2024-10-03 16:29 | XMS_ITS | Clinical Summary ---
Author Organization [facility] Address [address] [place] [address] Care Team Providers Care Teacher Of Gifted Students Name Role Phone Helen Medrano MD Primary Care Provider + Allergies Active Allergy Reactions Criticality Noted Date Comments Banana Hives Medium 01/01/2024 Medications vit [id number] a 27mg iron- 800 mcg-250 mg capsule [...] Recommend colten to help ease nausea. Contact ambulance driver paramedic for further instructions if nausea continues. Discussed preggy pop drops as well to help ease nausea. Will send zofran to patient pharmacy 20 tablets, follow up with WAX MOLDER for continued instructions. Anxiety 05/14/2023 Depression 05/14/2023 [...] Comments Blood Pressure 111/72 04/13/2024 2:15 PM PLUGMAN Pulse 94 04/13/2024 2:15 PM PLUGMAN Temperature 36.4 C (97.6 F) 04/13/2024 2:15 PM PLUGMAN Respiratory Rate 20 04/13/2024 2:15 PM PLUGMAN Oxygen Saturation 99% 04/13/2024 2:15 PM PLUGMAN Inhaled Oxygen Concentration - - Weight 55.4 kg (122 lb 1.6 oz) 04/13/2024 2:15 P M PLUGMAN Height 160 cm (5' 2.99 ) 04/13/2024 2:15 PM PLUGMAN Body Mass Index 21.63 04/13/2024 2:15 PM PLUGMAN Plan of Treatment Health Maintenance Due Date Last Done Comments Cervical Cancer Screening 2003 Chlamydia and Gonorrhea (GC/ CT) Screening 2003 Depression Screening 2003 Hepatitis C Screening 2003 HPV Vaccines (1 - 3-dose series) 09/09/2018 Meningococcal B Vaccine (1 o f 2 - Standard) 2019 Regular Well Visit/Exam 18-64 09/09/2021 Influenza Vaccine (Season Ended) 2025 03/18/2015, 02/26/2013, 04/18/2010, Additional history exists DTaP/Tdap/Td Vaccine (7 - Td or Tdap) 03/18/2025 03/18/2015, 09/21/2008, 12/14/2004, Additional history exists Hepatitis B Screening Completed 06/13/2004 , 2003, 2003 Pneumococcal vaccine <65 Completed 005, 03/08/2004, 01/12/2004, Additional history exists Varicella Vaccines Completed 09/21/2008, 09/12/2004 Meningococcal Vaccine Completed 02/25/2021, 015 Insurance [facility] Care Teams Teacher Of Gifted Students Relationship Specialty Start Date End Date Helen Medrano MD PCP - General 10/01/17
--- OUTSIDE RECORDS SUMMARY | 2024-10-03 16:30 | XMS_ITS | Encounter Summary ---
Author Organization [facility] Address [address] [place] [address] Care Team Providers Care Food Processing Plant Manager Name Role Phone Erica Cabrera PA-C Primary Care Provider [phone] Newton Mcclure MD Primary Care Provider [phone] Encounter Details Date Type Department Care Team (Late st Contact Info) Description 07/04/2023 [employer] Message Enc [facility] Medical Group Family & Internal Medicine [address] [address] Erica Cabrera PA-C [facility] [place] [address] Test results. Social History Tobacco [...] on file Legal Sex Female 10:45 PM MILLWRIGHT Gender Identity Not on file Sexual Orientation Not on file documented as of this encounter Progress Notes * Jinny Peters RN - 07/09/2023 1:34 PM CST Patient made aware of her results on 07/05/2023 WRIGHT documented in this encounter Plan of Treatment Not on file documented as of this encounter Visit Diagnoses Not on filedocumented in this encounter Additional Health Concerns Assessment Noted Time PHQ-9 Depression Total Score: 7 05/14/20 23 7:37 AM MILLWRIGHT documented as of this encounter Care Teams Food Processing Plant Manager Relationship Specialty Start Date End Date Erica Cabrera PA-C PCP - General PHYSICIAN CUSTOMER SUCCESS ADVOCATE 06/26/23 08/26/24 [place] [address] [place] [address] PCP - General INTERNAL MEDICINE 08/27/24 documented as of this encounter
--- OUTSIDE RECORDS SUMMARY | 2024-10-03 16:30 | XMS_ITS | Referral Summary ---
Author Organization [facility] Address [address] [place] [address] Care Team Providers Care Shoer Name Role Phone Helen Medrano MD Primary Care Provider + Allergies Active Allergy Reactions Criticality Noted Date Comments Banana Hives Medium 01/01/2024 Medications vit [id number]-dh a 27mg iron- 800 mcg-250 mg capsule [...] Recommend colten to help ease nausea. Contact truck rental clerk for further instructions if nausea continues. Discussed preggy pop drops as well to help ease nausea. Will send zofran to patient pharmacy 20 tablets, follow up with PROMOTIONAL MODEL for continued instructions. Anxiety 05/14/2023 Depression 05/14/2023 [...] Comments Blood Pressure 111/72 04/13/2024 2:15 PM SALVAGE MECHANIC Pulse 94 04/13/2024 2:15 PM SALVAGE MECHANIC Temperature 36.4 C (97.6 F) 04/13/2024 2:15 PM SALVAGE MECHANIC Respiratory Rate 20 04/13/2024 2:15 PM SALVAGE MECHANIC Oxygen Saturation 99% 04/13/2024 2:15 PM SALVAGE MECHANIC Inhaled Oxygen Concentration - - Weight 55.4 kg (122 lb 1.6 oz) 04/13/2024 2:15 P M SALVAGE MECHANIC Height 160 cm (5' 2.99 ) 04/13/2024 2:15 PM SALVAGE MECHANIC Body Mass Index 21.63 04/13/2024 2:15 PM SALVAGE MECHANIC Plan of Treatment Not on file Insurance [facility] Care Teams Shoer Relationship Specialty Start Date End Date Helen Medrano MD PCP - General 10/01/17
--- NOTE | 2024-10-13 04:44 | PM.OBTRLD ---
OB - Triage/Final Diagnosis Visit Information Comments/Additional reasons for admission: I have assessed the risk for this patient, Gabriela Elias, and determined that she would benefit from observation care. Final Diagnosis (1) False labor: Code(s): O47.9 - False labor, unspecified Status: Acute
== END 2024-10-03 11:35 | disposition home or self-care (01) ==
PROVIDERS: Admitting Provider Obstetrics & Gynecology; PCP Emergency Medicine; Visit Provider Obstetrics & Gynecology
DX: O47.9 False labor, unspecified (principal); Z3A.00 Weeks of gestation of pregnancy not specified
CPT/HCPCS: G0379

== ENCOUNTER 2024-10-08 15:56 | Inpatient (IN) | payer OTHER, SELFPAY ==
[2024-10-08] VITALS (15 sets, daily range): BP systolic 95–147; BP diastolic 60–118; PULSE 78–113; TEMP 36.6–36.8; BMI 32.0
--- OUTSIDE RECORDS SUMMARY | 2024-10-08 16:03 | XMS_ITS | Encounter Summary ---
Author Organization [facility] Address [address] [place] [address] Care Team Providers Care Plasterer Journeyman Name Role Phone Romina Brown NP Primary Care Provider Unav ailable Ronaldo Treviño MD Primary Care Provider [phone] Erica Cabrera PA-C Primary Care Provider [phone] Newton Mcclure MD Primary Care Provider [phone] Encounter Details Date Type Department Care Team (Late st Contact Info) Description 08/17/2017 Abstract [facility] CONVERSION [address] [place] [address] , Generic ConversionMD Social History Tobacco Use Types Packs/Day Years Used Date Smoking Tobacco: Never Assessed Comments Unknown Sex and Gender Information Value Date Recorded Sex Assigned at Not on file Legal Sex Female 10:45 PM CONTRACTING SPECIALIST Gender Identity Not on file Sexual Orientation Not on file documented as of this encounter Plan of Treatment Not on file documented as of this encounter Visit Diagnoses Not on filedocumented in this encounter Additional Health Concerns Infection Onset Date Last Indicated Resolved Time COVID-19 Rule Out 11/26/2022 11/26/2022 11/26/2022 9:32 AM CDT documented as of this encounter Care Teams Plasterer Journeyman Relationship Specialty Start Date End Date Romina Brown NP PCP - General NURSE PRACTITIONER 08/19/20 04/03/21 [place] [address] [place] [address] PCP - General FAMILY PRACTICE 04/04/21 06/25/23 Erica Cabrera PA-C [address] [place] [address] PCP - General PHYSICIAN CALCIMINER 06/26/23 08/26/24 [place] [address] [address] PCP - General INTERNAL MEDICINE 08/27/24 documented as of this encounter
--- OUTSIDE RECORDS SUMMARY | 2024-10-08 16:03 | XMS_ITS | Clinical Summary ---
Author Organization [facility] Address [address] [place] [address] Care Team Providers Care Interim Controller Name Role Phone Helen Medrano MD Primary Care Provider + Allergies Active Allergy Reactions Criticality Noted Date Comments Banana Hives Medium 01/01/2024 Medications vit 63-[id number]-dh a 27mg iron- 800 mcg-250 mg capsule [...] Recommend colten to help ease nausea. Contact dock builder for further instructions if nausea continues. Discussed preggy pop drops as well to help ease nausea. Will send zofran to patient pharmacy 20 tablets, follow up with BLOOD BANK ATTENDANT for continued instructions. Anxiety 05/14/2023 Depression 05/14/2023 [...] Comments Blood Pressure 111/72 04/13/2024 2:15 PM TECHNICAL SOURCING RECRUITER Pulse 94 04/13/2024 2:15 PM TECHNICAL SOURCING RECRUITER Temperature 36.4 C (97.6 F) 04/13/2024 2:15 PM TECHNICAL SOURCING RECRUITER Respiratory Rate 20 04/13/2024 2:15 PM TECHNICAL SOURCING RECRUITER Oxygen Saturation 99% 04/13/2024 2:15 PM TECHNICAL SOURCING RECRUITER Inhaled Oxygen Concentration - - Weight 55.4 kg (122 lb 1.6 oz) 04/13/2024 2:15 P M TECHNICAL SOURCING RECRUITER Height 160 cm (5' 2.99 ) 04/13/2024 2:15 PM TECHNICAL SOURCING RECRUITER Body Mass Index 21.63 04/13/2024 2:15 PM TECHNICAL SOURCING RECRUITER Plan of Treatment Health Maintenance Due Date [...] 09/12/2004 Meningococcal Vaccine Completed 02/25/2021, 015 Insurance [facility] Care Teams Interim Controller Relationship Specialty Start Date End Date Helen Medrano MD PCP - General 10/01/17
--- OUTSIDE RECORDS SUMMARY | 2024-10-08 16:03 | XMS_ITS | Encounter Summary ---
Author Organization [facility] Address [address] [place] [address] Care Team Providers Care Park Superintendent Name Role Phone Erica Cabrera PA-C Primary Care Provider [phone] Newton Mcclure MD Primary Care Provider [phone] Encounter Details Date Type Department Care Team (Late st Contact Info) Description 07/23/2023 Blackstar Amplification Message Enc [facility] Medical Group Family & Internal Medicine [address] [address] [facility] Provider FLuoxetine Social History Tobacco Use [...] on file Legal Sex Female 10:45 PM CERTIFIED PHLEBOTOMY TECHNICIAN Gender Identity Not on file Sexual Orientation Not on file documented as of this encounter Progress Notes * Ashley Kebede RN - 07/30/2023 1:25 PM CST Nurse called and spoke with pt. Appt made for tomorrow IFIED PHLEBOTOMY TECHNICIAN * Erica Cabrera PA-C - 07/30/2023 11:57 AM CST With her symptoms I would recommend decreasing her Prozac to 20 mg daily until office visit. If sheis having severe symptoms she needs to go to the emergency room. Thank you! IFIED PHLEBOTOMY TECHNICIAN * Prisca Bruno NP - 07/30/2023 10:32 AM CST Fyi: Patient has appt. 08/07/23. IFIED PHLEBOTOMY TECHNICIAN documented in this encounter Plan of Treatment Not on file documented as of this encounter Visit Diagnoses Diagnosis Anxiety Anxiety state, unspecified PTSD (post-traumatic stress disorder) Posttraumatic stress disorder Depression, unspecified depression type documented in this encounter Additional Health Concerns Assessment Noted Time PHQ-9 Depression Total Score: 7 05/14/20 23 7:37 AM CERTIFIED PHLEBOTOMY TECHNICIAN documented as of this encounter Care Teams Park Superintendent Relationship Specialty Start Date End Date Erica Cabrera PA-C PCP - General PHYSICIAN AIR CONDITIONING INSTALLER 06/26/23 08/26/24 [place] [address] [place] [address] PCP - General INTERNAL MEDICINE 08/27/24 documented as of this encounter
--- OUTSIDE RECORDS SUMMARY | 2024-10-08 16:03 | XMS_ITS | Clinical Summary ---
Author Organization [facility] Address [address] [place] [address] Care Team Providers Care Diabetic Educator Name Role Phone Newton Mcclure MD Primary Care Provider [phone] Allergies No known active allergies Medications hydrOXYzine (VISTARIL) 25 MG capsuleIndications :Anxiety Take 1 capsule (25 mg total) by mouth 3 (three) times daily as needed for Anxiety. 30 capsule 05/14/20 23 Active levonorgestrel (KYLEENA) 19.5 MG IUD 1 each (19.5 mg total) by Intrauterine route once. 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 ([facility]) TAKE 1 TABLET BY MOUTH EVERY DAY [...] on file Legal Sex Female 10:45 PM PROGRAMMING DEVELOPMENT PROJECT MANAGER Gender Identity Not on file Sexual Orientation Not on file Last Filed Vital Signs Vital Sign Reading Time Taken Comments Blood Pressure 98/67 07/31/2023 11:20 AM PROGRAMMING DEVELOPMENT PROJECT MANAGER Pulse 80 07/31/2023 11:20 AM PROGRAMMING DEVELOPMENT PROJECT MANAGER Temperature 36.4 C (97.6 F) 07/31/2023 11:20 AM PROGRAMMING DEVELOPMENT PROJECT MANAGER Respiratory Rate 16 07/31/2023 11:2 0 AM PROGRAMMING DEVELOPMENT PROJECT MANAGER Oxygen Saturation 96% 07/31/2023 11: 20 AM PROGRAMMING DEVELOPMENT PROJECT MANAGER Inhaled Oxygen Concentration - - Weight 53.4 kg (117 lb 12.8 oz) 024 11:20 AM PROGRAMMING DEVELOPMENT PROJECT MANAGER Height 160 cm (5' 3 ) 07/31/2023 11:20 AM PROGRAMMING DEVELOPMENT PROJECT MANAGER Body Mass Index 20.87 07/31/2023 11:20 AM PROGRAMMING DEVELOPMENT PROJECT MANAGER Plan of Treatment Health Maintenance Due Date Last Done Comments Cervical Cancer Screening Pap Smear (Age 21 to 29) Every 3 Years 2003 Cervical Cancer Screening 2003 Hepatitis B Vaccines (3 of 3 - 3-dose series) 08/08/2004 06/13/2004, 2003 HPV Vaccines (1 - 3-dose series) 09/09/2018 Meningococcal B Vaccine (1 of 2 - Standard) 2019 COVID-19 Vaccine ( - season) 2024 PHQ-2 (Physician [place]) 06/03/2024 07/31/2023 Annual Physical 06/26/2024 06/26/2023 DTaP, [...] Comments HEPATITIS PANEL,ACUTE Routine 07/31/2023 12:14 PM PROGRAMMING DEVELOPMENT PROJECT MANAGER Screening examination for STD (sexually transmitted disease) from Last 3 Months or Most Recently Relevant to Health Maintenance Results * HEPATITIS PANEL,ACUTE (07/31/2023 12:14 PM PROGRAMMING DEVELOPMENT PROJECT MANAGER) HAV IGM NON-REACT GISELL NON-REACT GISELL [facility] Comment: For additional information, please refer to http://[employer]/faq/JOG379 (This link is being provided for informational/ educational purposes only.) HEPATITIS B SURFACE AG NON-REACT GISELL NON-REACT GISELL [facility] Comment: For additional information, please refer to http://[employer]/faq/QKR869 (This link is being provided for informational/ educational purposes only.) HEP B CORE IGM NON-REACT GISELL NON-REACT GISELL [facility] Comment: For additional information, please refer to http://[employer]/faq/OKH462 (This link is being provided for informational/ educational purposes only.) HEPATITIS C AB NON-REACT GISELL NON-REACT GISELL [facility] Comment: HCV antibody was non-reactive. There is no laboratory evidence of HCV infection. In most cases, no further action is required. However, if recent HCV exposure is suspected, a test for HCV RNA (test code 83612) is suggested. For additional information please refer to http://[employer]/faq/ZHQ75l2 (This link is being provided for informational/ educational purposes only.) 07/31/2023 12:1 4 PM PROGRAMMING DEVELOPMENT PROJECT MANAGER 08/01/2023 4:04 AM PROGRAMMING DEVELOPMENT PROJECT MANAGER Narrative Resulting Agency Comment Performing Organization Information: Site ID: [id number] Name: [facility] Address: [address] [address] Director: Bridget Osborne MD us Erica Cabrera PA-C LABORATORY Final Result [facility] [address] [place] [address], BZ from Last 3 Months or Most Recently Relevant to Health Maintenance Care Teams Diabetic Educator Relationship Specialty [place] [id number] [address] PCP - General INTERNAL MEDICINE 08/27/24
--- OUTSIDE RECORDS SUMMARY | 2024-10-08 16:03 | XMS_ITS | Encounter Summary ---
Author Organization [facility] Address [address] [place] [address] Care Team Providers Care Studio Receptionist Name Role Phone Erica Cabrera PA-C Primary Care Provider [phone] Newton Mcclure MD Primary Care Provider [phone] Encounter Details Date Type Department Care Team (Late st Contact Info) Description 07/12/2023 [employer] Message Enc [facility] Family & Internal Medicine [address] [address] Erica Cabrera PA-C [facility] [place] [address] Bowel issue Social History Tobacco [...] on file Legal Sex Female 10:45 PM LENS INSERTER Gender Identity Not on file Sexual Orientation Not on file documented as of this encounter Progress Notes * Jayshree Tinoco RN - 07/24/2023 9:01 AM CST Pt has responded via [employer] message. INSERTER * Jayshree Tinoco RN - 07/23/2023 4:16 PM CST Sent a [employer] message to the pt asking how she was doing. INSERTER * Erica Cabrera PA-C - 07/15/2023 12:07 [...] she more likely has a viral infection. INSERTER * Jinny Peters RN - 07/15/2023 11:55 AM CST Prozac recently ordered. INSERTER documented in this encounter Plan of Treatment Not on file documented as of this encounter Visit Diagnoses Not on filedocumented in this encounter Additional Health Concerns Assessment Noted Time PHQ-9 Depression Total Score: 7 05/14/20 23 7:37 AM LENS INSERTER documented as of this encounter Care Teams Studio Receptionist Relationship Specialty Start Date End Date Erica Cabrera PA-C PCP - General PHYSICIAN CRYPTOGRAPHIC TECHNICIAN 06/26/23 08/26/24 [place] [address] [place] [address] PCP - General INTERNAL MEDICINE 08/27/24 documented as of this encounter
--- OUTSIDE RECORDS SUMMARY | 2024-10-08 16:04 | XMS_ITS | Encounter Summary ---
Author Organization [facility] Address [address] [place] [address] Care Team Providers Care Machine Room Operator Name Role Phone Erica Cabrera PA-C Primary Care Provider [phone] Newton Mcclure MD Primary Care Provider [phone] Encounter Details Date Type Department Care Team (Late st Contact Info) Description 07/04/2023 [employer] Message Enc [facility] Family & Internal Medicine [address] [address] Erica Cabrera PA-C [facility] [place] [address] Test results. 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 Gender Identity Not on file Sexual Orientation Not on file documented as of this encounter Progress Notes * Jinny Peters RN - 07/09/2023 1:34 PM CST Patient made aware of her results on 07/05/2023 UTER REPAIR ENGINEER documented in this encounter Plan of Treatment Not on file documented as of this encounter Visit Diagnoses Not on filedocumented in this encounter Additional Health Concerns Assessment Noted Time PHQ-9 Depression Total Score: 7 05/14/20 23 7:37 AM COMPUTER REPAIR ENGINEER documented as of this encounter Care Teams Machine Room Operator Relationship Specialty Start Date End Date Erica Cabrera PA-C PCP - General PHYSICIAN MEDICAID SERVICE COORDINATOR 06/26/23 08/26/24 [place] [address] [place] [address] PCP - General INTERNAL MEDICINE 08/27/24 documented as of this encounter
--- OUTSIDE RECORDS SUMMARY | 2024-10-08 16:04 | XMS_ITS | Referral Summary ---
Author Organization [facility] Address [address] [place] [address] Care Team Providers Care Cell Assembly Pinner Name Role Phone Helen Medrano MD Primary Care Provider + Allergies Active Allergy Reactions Criticality Noted Date Comments Banana Hives Medium 01/01/2024 Medications vit 46-cwbx-ojxcj-dh a 27mg iron- 800 mcg-250 mg capsule [...] Recommend colten to help ease nausea. Contact molder closed molds for further instructions if nausea continues. Discussed preggy pop drops as well to help ease nausea. Will send zofran to patient pharmacy 20 tablets, follow up with [employer] for continued instructions. Anxiety 05/14/2023 Depression 05/14/2023 [...] Comments Blood Pressure 111/72 04/13/2024 2:15 PM XRAY TECH Pulse 94 04/13/2024 2:15 PM XRAY TECH Temperature 36.4 C (97.6 F) 04/13/2024 2:15 PM XRAY TECH Respiratory Rate 20 04/13/2024 2:15 PM XRAY TECH Oxygen Saturation 99% 04/13/2024 2:15 PM XRAY TECH Inhaled Oxygen Concentration - - Weight 55.4 kg (122 lb 1.6 oz) 04/13/2024 2:15 P M XRAY TECH Height 160 cm (5' 2.99 ) 04/13/2024 2:15 PM XRAY TECH Body Mass Index 21.63 04/13/2024 2:15 PM XRAY TECH Plan of Treatment Not on file Insurance [facility] Care Teams Cell Assembly Pinner Relationship Specialty Start Date End Date Helen Medrano MD PCP - General 10/01/17
--- NOTE | 2024-10-08 17:02 | LDADM ---
This patient, Gabriela Elias, was admitted to Labor/Delivery/Recovery 107 on 10/08/24 at 15:56. Plans for labor, pain management and were discussed with patient. Patient/family oriented to hospital policies and general routines including ID bracelet, bed and alarms, visiting hours, pain management, procedures, bathroom and other care routines, personal items, smoking policy, room service/diet and guest tray routines, security routines, and visiting hours. Patient/Family are encouraged to report perceived risks to care and to ask questions if they do not understand what they are told or what they should do. See OBIX for further documentation.
[2024-10-08 17:33] LABS: Basophils Percent Auto 0.1 % (0.2-1.2); Eosinophils Percent Auto 0.5 % (0-4.4); Hematocrit 31.1 % (37.0-47.0); Immature Granulocyte Absolute 0.04 K/mm3 (0.00-0.031); Immature Granulocyte Percent A 0.5 % (0-0.5); Lymphocytes Percent Auto 13.9 % (18.3-44.2); Mean Corpuscular HGB Conc 32.2 g/dl (32-36); Mean Corpuscular Hemoglobin 28.5 pg (26-34); Mean Corpuscular Volume 88.6 fl (80-100); Monocytes Absolute Auto 0.7 K/mm3 (0.1-0.6); Monocytes Percent Auto 7.8 % (2.6-8.5); Neutrophils Absolute Auto 6.7 K/mm3 (1.3-6.7); Neutrophils Percent Auto 77.2 % (45.5-73.1); Platelet Count Result 155 k/mm3 (150-375); Red Blood Count 3.51 M/mm3 (4.2-5.4); Red Cell Distribution Width 13.1 % (11.5-14.5); White Blood Count 8.6 K/mm3 (4.5-10.0)
[2024-10-08 18:16] LABS: Syphilis IgG/IgM Antibody Negative (Negative)
[2024-10-08 18:29] LABS: HIV 1/2 Ab P24 Ag Result Negative (Negative)
[2024-10-08] MEDS: LACTATED RINGERS 1,000 ML 125 ML IV CONT (19:54)
[2024-10-09] VITALS (221 sets, daily range): BP systolic 100–147; BP diastolic 49–105; PULSE 79–154; TEMP 36.4–37.9; O2SAT 95–100
[2024-10-09] MEDS: OXYTOCIN 30 UNITS/NS 500 ML 30 UNITS/500 ML BAG IV CONT (01:32)
[2024-10-09] MEDS: LACTATED RINGERS 1,000 ML 125 ML IV CONT ×2 (02:55→22:25)
--- NOTE | 2024-10-09 04:48 | PM.IMHP ---
H&P: HPI History of Present Illness Date/Time: 10/09/24 04:48 Chief Complaint: Postdate Narrative: This is a 19-year-old 1 para 0 whose last menstrual period was 12/30/2023, EDC is 10/04/2024, presents for induction of labor at 40 and half weeks gestation she is negative for group B strep she had a negative diabetic screen and has been uncomplicated PMFSH Past Medical History Medical History No significant past medical history Surgical History Surgical History No significant past surgical history Social History Social History Smoking status: Former smoker Alcohol intake: never Substance use: never Do You Feel Safe in your Home?: Yes Lack of Transportation: No Lack of Food: Never True Current Housing: I Have Housing Concerned About Future Housing: No Difficulty Paying Gas/Electric Bills: No Difficulty Paying for Meds: No Currently Unemployed: No Education: High School Diploma/GED Difficulty w/ Childcare or Family Care: No Gender identity (if verbalized by the patient): Female Spiritual care concerns: No Comments At time of signature, agree with nursing past medical, surgical, social and family history. There is no relevant family history pertinent to the presenting complaint. Meds Home Medications and Allergies Home Medications ?Medication ?Instructions ?Recorded ?Confirmed ?Type qexcmthodg-dgrgzsvdtrcdb-bxsodjbd 1 tablet PO Q6H PRN pain 09/16/24 10/08/24 History 50 mg-325 mg-40 mg tablet vits no.130-ferrous fum 1 tablet PO DAILY 09/19/24 10/08/24 History 27 mg iron-folic acid 800 mcg tablet ( Vitamin) Allergies Allergy/AdvReac Type Severity Reaction Status Date / Time banana Allergy Mild Rash Verified 09/19/24 12:42 Vital Signs Vital Signs - 24 hr 10/08/24 17:01 10/08/24 18:01 10/08/24 18:31 Temperature Pulse Rate 104 H 113 H Blood Pressure 129/79 130/79 Oxygen Delivery Room Air 10/08/24 19:00 10/08/24 19:01 10/08/24 19:31 Temperature 98.2 F Pulse Rate 103 H 113 H Blood Pressure 137/77 131/80 Oxygen Delivery 10/08/24 20:01 10/08/24 20:32 10/08/24 21:00 Temperature 97.9 F Pulse Rate 106 H 107 H Blood Pressure 115/63 143/80 H Oxygen Delivery 10/08/24 21:01 10/08/24 21:31 10/08/24 22:01 Temperature Pulse Rate 104 H 106 H 107 H Blood Pressure 134/76 140/77 134/87 Oxygen Delivery 10/08/24 22:31 10/08/24 23:00 10/08/24 23:01 Temperature 98.1 F Pulse Rate 78 89 Blood Pressure 147/118 H 95/81 L Oxygen Delivery 10/08/24 23:31 10/09/24 00:01 10/09/24 00:31 Temperature Pulse Rate 92 92 97 Blood Pressure 128/60 105/57 L 107/55 L Oxygen Delivery 10/09/24 01:00 10/09/24 01:01 10/09/24 01:32 Temperature 98.9 F Pulse Rate 96 100 Blood Pressure 102/60 126/74 Oxygen Delivery 10/09/24 02:01 10/09/24 02:31 10/09/24 03:00 Temperature 97.6 F Pulse Rate 92 92 Blood Pressure 125/72 126/70 Oxygen Delivery 10/09/24 03:01 10/09/24 03:31 10/09/24 04:01 Temperature Pulse Rate 94 90 79 Blood Pressure 123/73 124/70 103/56 L Oxygen Delivery 10/09/24 04:31 Temperature Pulse Rate 96 Blood Pressure 115/88 Oxygen Delivery Exam Const: General: cooperative, healthy appearing and comfortable Nutritional Appearance: average body habitus Orientation/consciousness: oriented to person, oriented to place and oriented to time Resp: Effort & Inspection: normal respiratory effort Cardio: Rate: regular rate Rhythm: regular rhythm Heart sounds: S1 normal heart sound present and S2 normal heart sound present GI: Inspection: normal to inspection (Gravid soft uterus) : External Female Exam: normal external appearance Speculum Exam - Vagina: normal appearance of the vagina Speculum Exam - Cervix: normal appearance of the cervix (Cervix 2/75/-2. AROM clear. FHTs reassuring) H&P: Results Labs Labs: Short CBC 10/08/24 Range/Units 16:15 WBC 8.6 (4.5-10.0) K/mm3 Hgb 10.0 L (12.0-15.0) g/dL Hct 31.1 L (37.0-47.0) % Plt Count 155 (150-375) k/mm3 Assessment and Plan Assessment and plan (1) Term : Code(s): Z34.90 - Encounter for supervision of normal , unspecified, unspecified trimester Status: Acute Plan Medical induction of labor. Spontaneous vaginal delivery expected. She is an epidural candidate
--- NOTE | 2024-10-09 10:14 | PM.OBPNLAB ---
Pain Control Date/time seen: 10/09/24 10:14 Pain control: tolerating well and epidural
--- NOTE | 2024-10-09 11:34 | P.PNAN_ITS ---
Anes - Initial Pre Proc Eval Date/Time: 10/09/24 11:34 Surgeon: Jasbir Gill MD Pre Op Diagnosis: Induction of Labor Patient Data Age: 19 Gender: F Height: 1.6 m Weight: 82 kg Last Vital Signs Temp 36.8 C 10/09/24 05:00 Pulse 105 H 10/09/24 11:31 BP 114/49 L 10/09/24 11:31 Pulse Ox 98 10/09/24 11:29 O2 Del Method Room Air 10/08/24 17:01 Allergies Allergy/AdvReac Type Severity Reaction Status Date / Time banana Allergy Mild Rash Verified 09/19/24 12:42 Home Medications ?Medication ?Instructions ?Recorded ?Confirmed ?Type oeonjioebg-btaqodrpaiwab-kjxukdum 1 tablet PO Q6H PRN pain 09/16/24 10/08/24 History 50 mg-325 mg-40 mg tablet vits no.130-ferrous fum 1 tablet PO DAILY 09/19/24 10/08/24 History 27 mg iron-folic acid 800 mcg tablet ( Vitamin) Laboratory Tests 10/08/24 16:15 WBC 8.6 K/mm3 (4.5-10.0) RBC 3.51 L M/mm3 (4.2-5.4) Hgb 10.0 L g/dL (12.0-15.0) Hct 31.1 L % (37.0-47.0) MCV 88.6 fl (80-100) MCH 28.5 pg (26-34) MCHC 32.2 g/dl (32-36) RDW 13.1 % (11.5-14.5) Plt Count 155 k/mm3 (150-375) MPV 11.0 H fl (7.4-10.4) Immature Gran % (Auto) 0.5 % (0-0.5) Neut % (Auto) 77.2 H % (45.5-73.1) Lymph % (Auto) 13.9 L % (18.3-44.2) [place] % (Auto) 7.8 % (2.6-8.5) Eos % (Auto) 0.5 % (0-4.4) Baso % (Auto) 0.1 L % (0.2-1.2) Lymph # (Auto) 1.20 K/mm3 (0.9-3.2) [place] # (Auto) 0.7 H K/mm3 (0.1-0.6) Eos # (Auto) 0.0 K/mm3 (0-0.3) Baso # (Auto) 0.0 K/mm3 (0.0-0.1) Abs Immat Gran (auto) 0.04 H K/mm3 (0.00-0.031) Absolute Neuts (auto) 6.7 K/mm3 (1.3-6.7) Absolute Nucleated RBC 0.000 K/mm3 (0.0-0.012) Nucleated RBC % 0.0 % (0.0-0.2) Syphilis IgG/IgM Ab Negative (Negative) HIV 1&2 Ab/P24 Ag 4thGn Negative (Negative) Blood Type O Positive Antibody Screen Negative Patient hx anesthesia problems: none Family hx anesthesia problems: none Results Review: All pre-operative results and documents have been reviewed as part of the pre- operative evaluation. [facility] Past Medical History Medical History No significant past medical history Surgical History Surgical History No significant past surgical history Social History Social History Smoking status: Former smoker Alcohol intake: never Substance use: never Do You Feel Safe in your Home?: Yes Lack of Transportation: No Lack of Food: Never True Current Housing: I Have Housing Concerned About Future Housing: No Difficulty Paying Gas/Electric Bills: No Difficulty Paying for Meds: No Currently Unemployed: No Education: High School Diploma/GED Difficulty w/ Childcare or Family Care: No Gender identity (if verbalized by the patient): Female Spiritual care concerns: No Anes - Eval Final PreProcedure Day of Procedure 10/09/24 11:34 Patient weight: obese Neurological: alert and oriented ASA classification: II Emergent: no Anesthetic plan: proceed Anesthesia type and monitoring: regional epidural and standard monitoring Results Review: All pre-operative results and documents have been reviewed as part of the pre- operative evaluation. Informed Consent: The patient's anesthetic plan and its attendant risks and benefits were discussed with the patient/family/POA. Questions were solicited and answers provided to the satisfaction of the patient/family/POA.
--- NOTE | 2024-10-09 12:43 | PM.OBPNLAB ---
Pain Control Date/time seen: 10/09/24 12:43 Pain control: tolerating well and epidural Pelvic Exam Dilation (cm): 3 Effacement (%): 90 station: -2 Amniotic membrane status: Leaking Contractions Monitor mode: Internal
--- NOTE | 2024-10-09 15:09 | PM.OBPNLAB ---
Pain Control Date/time seen: 10/09/24 15:09 Pain control: tolerating well and epidural Pelvic Exam Dilation (cm): 3 Effacement (%): 90 station: -2 Amniotic membrane status: Leaking Contractions Monitor mode: Internal
[2024-10-09] MEDS: ONDANSETRON INJ 4 MG/2 ML VIAL IV PUSH ×2 (16:10→23:25)
--- NOTE | 2024-10-09 17:02 | PM.OBPNLAB ---
Pain Control Date/time seen: 10/09/24 17:02 Pelvic Exam Dilation (cm): 5 Effacement (%): 90 station: -2 Amniotic membrane status: Leaking Contractions Monitor mode: Internal
[2024-10-09] MEDS: diphenhydrAMINE HCl INJ 50 MG/ML VIAL IV PUSH (20:39)
[2024-10-09] MEDS: CALCIUM CARBONATE (TUMS) 500 MG (200 MG ELEMENTAL) PO (21:05)
[2024-10-09] MEDS: AMPICILLIN 2 GM/NS 100 ML 2 GM/100 ML BAG IVPB (22:25)
--- NOTE | 2024-10-09 23:17 | P.PNOB_ITS ---
Pain Control Date/time seen: 10/09/24 23:17 Pain control: tolerating well and epidural Comments: Lack of cervical change at this point with an elevated temperature and heart tones were somewhat flatter and bladder for poor progress of offered her low- transverse section risks and benefits of section reviewed and she is agreeable Pelvic Exam Dilation (cm): 5 Effacement (%): 90 station: -2 Amniotic membrane status: Leaking Contractions Monitor mode: Internal
--- NOTE | 2024-10-09 23:17 | WPDHPUPDATE1 ---
History and Physical Update Update Date/Time: 10/09/24 23:17 History and Physical has been reviewed, including an updated exam of the patient. There are NO changes in the patient's condition. Risks, benefits, and alternatives have been discussed and questions answered. Patient agrees to proceed with procedure.
[2024-10-09] MEDS: ACETAMINOPHEN 500 MG TABLET 1000 MG PO (23:23)
[2024-10-09] MEDS: FAMOTIDINE 20 MG/2 ML VIAL IV PUSH (23:25)
[2024-10-09] MEDS: ceFAZolin 2 GM/D5W 50 ML 2 GM/50 ML BAG IVPB (23:37)
[2024-10-09] MEDS: AZITHROMYCIN 500 MG/NS 250 ML 500 MG/250 ML BAG 250 MG IVPB (23:37)
[2024-10-10] VITALS (42 sets, daily range): BP systolic 90–182; BP diastolic 44–141; PULSE 96–219; RESP 12–30; TEMP 36.1–38.3; O2SAT 95–100
--- NOTE | 2024-10-10 00:20 | P.PCNOB_ITS ---
OB - Delivery Note Procedure Delivery date: 10/10/24 Pre-op diagnosis: Arrest of Decent and Other (Maternal hyperpyrexia/ intolerance to labor) Post-op Diagnosis: Same Induction method: Per Cervidil Protocol Delivery augmentation: Pitocin Delivery monitor: External FHT, External Uterine, Internal FHT and Internal Uterine Prior to decision for section, [facility] labor guidelines were considered and discussed with the patient and staff. Decision made to proceed with the section.: Yes Procedure Performed: Primary Surgeon: Jasbir Gill MD Anesthesia type: Epidural Description of Procedure/Findings: Patient was admitted for induction of labor got to about 6-7 cm and the elevated temperature with recurrent decelerations. Was offered low-transverse section. After obtaining informed consent she was taken back prepped placed in the supine position. Under excellent epidural anesthesia the abdomen was entered Pfannenstiel fashion progressive layers of fascia. Fascia incised midl ine cure number not fashion bilaterally. Underlying muscles sharply dissected. Prior peritoneum will by Melita clamps and by sharp dissection carried superiorly and inferiorly the dome bladder. Bladder flap formed. Bladder blade returned. A low-transverse incision made head delivered in the KAYCE position. Anterior posterior shoulder delivered spontaneously. Cord clamped x2 and cut pass ed off the table excellent cry. Placenta delivered intact manually. Uterus delivered on the abdomen wrapped in a moist towel. After assuring no membranes or debris remained in the uterus, uterus was closed continuous running locking 0 Vicryl from lateral edge to lateral edge. This followed by 2nd imbricating running locking 0 Vicryl from lateral edge to edge. Hemostasis was assured. The ovaries and tubes appeared within normal limits in the uterus returned to the abdomen. The hysterotomy incision inspected 1 last time noted be hemostatic and sprinkled with Surgicel powder. The laps removed and accounted for the fascia closed with continuous running 0 Vicryl from lateral edge to edge. Irrigation subcutaneous layer and the skin closed with 4 Monocryl glue. QBL was 1235. All sponge needle, instrument counts were correct. There were complications Estimated Blood Loss: 1,235 Drains: No Packing: No Pathology: None sent Complications: No immediate complications Condition: Stable Disposition: PACU Baby Date of : 10/09/24 Time of : 23:53 Gestational Age by Date: 40 Infant gender: Female presentation: vertex position: Right Occiput Anterior Placenta delivery description: Spontaneous Cord Vessel Description: 3 Vessels score one minute: 8 score five minutes: 9
--- NOTE | 2024-10-10 00:24 | P.DS_ITS ---
DS: Admitting Diagnosis Discharge Date 10/12/2024 Admitting Diagnosis Term DS: Discharge Diagnosis Discharge Diagnosis (1) Term : Code(s): Z34.90 - Encounter for supervision of normal , unspecified, unspecified trimester Status: Acute DS: Summary Hospital Course Reason for hospitalization: Patient was admitted on 10/08 2024. On 10/09 she underwent low-transverse section for failure to progress an elevated temperature. Hospital Course: Patient's hospital course unremarkable. She remained afebrile. She was up, voiding without difficulty, eating regular diet, ambulating, and generally without complaints. Time Spent with Patient Time attestation: Total time spent providing and/or coordinating discharge services: Exam Const: General: cooperative, healthy appearing and comfortable Nutritional Appearance: average body habitus Orientation/consciousness: oriented to person, oriented to place and oriented to time Resp: Effort & Inspection: normal respiratory effort Cardio: Rate: regular rate Rhythm: regular rhythm Heart sounds: S1 normal heart sound present and S2 normal heart sound present GI: Inspection: normal to inspection and incision (Wound is clean dry and intact) Discharge Plan Discharge Attending physician on discharge: Jasbir Stafford Discharging Clinician: Jasbir Stafford Patient Disposition: Home Activity: may shower, no straining and pelvic rest Diet: heart healthy Wound Care Instructions: follow printed instructions Patient Instructions: Antibiotic Form Patient Language: Honduran Stand Alone Forms: General Discharge Information Follow-up/Referrals: Jasbir Stafford MD [Physician] - Discharge Medications: New hydrocodone-acetaminophen 5-325 mg tablet 1 tablet PO Q4H PRN (Reason: pain) Qty: 20 0RF Continued Vitamin 27 mg iron- 800 mcg tablet 1 tablet PO DAILY wlzzywaybr-vugcizjtnhncl-ujfp 50-325-40 mg tablet 1 tablet PO Q6H PRN (Reason: pain) Date of admission: 10/08/24 15:56 Primary Care Provider: UNKNOWN,DOCTOR Admitting Provider: Jasbir Stafford Attending physician on admission: Jasbir Stafford Condition: Stable
--- NOTE | 2024-10-10 00:35 | PC.NURSE ---
Patrice Griffin RN called Dr. Mo Gill and made him aware of 240ml clot expelled in OR post fundal rub. Orders received for 1000mg Cytotec rectally once.
[2024-10-10] MEDS: miSOPROStol 200 MCG TABLET 1000 MCG (00:37)
[2024-10-10] MEDS: MORPHINE SULFATE INJ (*CRX) 10 MG/ML AMP 2 MG IV PUSH (01:15)
[2024-10-10] MEDS: OXYTOCIN 30 UNITS/NS 500 ML 30 UNITS/500 ML BAG 125 UNITS IV CONT (02:00)
[2024-10-10] MEDS: HYDROcodone/acetaminophen (*CRX) 10-325 MG TABLET 1 TAB PO (04:34)
--- NOTE | 2024-10-10 07:13 | OBPPTRN ---
0653-Patient transferred to post room #282 via bed. Support person present. Oriented to unit, room, information board, rooming in, admission packet and security measures. Patient verbalizes understanding.
[2024-10-10] MEDS: DEXTROSE 5%/0.45% SOD CHL 1,000 ML 125 ML IV CONT (07:32)
[2024-10-10] MEDS: ceFAZolin 1 GM/NS 50 ML 1 GM/50 ML BAG IVPB ×2 (07:32→16:31)
[2024-10-10] MEDS: DOCUSATE SODIUM 100 MG CAPSULE PO ×2 (07:34→16:31)
[2024-10-10] MEDS: SIMETHICONE 80 MG TAB.CHEW PO ×3 (07:35→16:31)
[2024-10-10] MEDS: MULTIVIT/MIN/PREN/FOL AC/IRON TABLET 1 TAB PO (07:35)
[2024-10-10] MEDS: KETOROLAC 15 MG/ML VIAL (*BKC) IV PUSH ×3 (07:47→19:43)
[2024-10-10] MEDS: ACETAMINOPHEN 325 MG TABLET 650 MG PO ×3 (07:47→19:43)
[2024-10-10] MEDS: LIDOCAINE 5% PATCH 1 PATCH TRANSDERM (07:49)
--- NOTE | 2024-10-10 11:12 | WPDANLDPN2 ---
Anes-Prog Note L&D Date/Time: 10/10/24 11:12 Comfortable throughout: labor, delivery and section Neuraxial method: epidural Epidural/Spinal procedure site: clean & non-tender Neuro status: Neuro function grossly intact. Cardiovascular status: normal Respiratory status: normal Airway patency: baseline Mental status: baseline Post-Op hydration status: normal Vital Signs: Last Vital Signs Temp 36.6 C 10/10/24 07:01 Pulse 109 H 10/10/24 07:01 Resp 19 10/10/24 07:01 BP 122/76 10/10/24 07:01 Pulse Ox 96 10/10/24 07:01 O2 Del Method Room Air 10/10/24 02:30 Pain score (VAS): 1 I/O: Intake & Output 10/09/24 10/10/24 10/10/24 23:59 07:59 15:59 Intake Total 350 Output Total 1999 450 Balance -2000 -100 Post-procedural complaints: none Patient feedback: Patient satisfied with anesthetic care.
--- NOTE | 2024-10-10 11:13 | WPDANLDNPN2 ---
Anes-Prog Note L&D-Neuraxial Date/Time: 10/10/24 11:13 Neuraxial medications: epidural PF morphine Opiod-related complaints: none Patient feedback: Patient satisfied with post-operative pain management.
--- NOTE | 2024-10-10 14:48 | PC.NURSE ---
Introductions were made, then consulted with patient to assess needs related to . Mother led the conversation with her?plans to feed?her and the?experience so far. Encouraged understanding of the benefits of skin to skin (demonstrating unwrapping infant and placing upright on her chest), stimulating with massage touch, changing positions to encourage wakefulness, how to watch for early feeding cues, responsive feeding, feeding on demand (aiming for 8-12 times in 24 hours, about every 2-3 hours), milk production, building/maintaining a milk supply, duration of feeding, signs of adequate intake/output and how to record on the feeding sheet. Mother works well with her infant with encouragement and education. Reviewed positioning and ear, shoulder, hip alignment, supporting the breast to facilitate a deep latch, asymmetrical latch (off-center), leading with the chin with a big, open, wide gape and body close to mother. Infant latched optimally to the [right] breast in [football] position. Education given to the mother of how to visualize the suckling (with good rocking jaw motion), swallows (dropping of the lower jaw) and how to listen for drinking at the breast (the ka sound). was [able] to maintain latch without pain to mother protecting the nipple with optimal positioning and latching. Reviewed comfort measures of healing with a warm, wet washcloth to rinse breast, then leave open to air-dry, good handwashing when or touching the breast/nipples to prevent infection. Mother voiced understanding of skin to skin, stimulating with massage touch, responsive feedings, hand expressed colostrum, talking to to encourage if it has been 2 -2.5 hours since the start of the last , to call if infant does not latch, or if there is discomfort with . Parents voiced understanding of information, demonstrated learning and will call if there is a request for assistance. Reported to the Primary RN.
[2024-10-10] MEDS: LANOLIN (LANSINOH) 7.5 GM CREAM 1 APPLIC TOPICAL (21:41)
[2024-10-11] MEDS: ACETAMINOPHEN 325 MG TABLET 650 MG PO ×4 (02:00→20:35)
[2024-10-11] MEDS: IBUPROFEN 600 MG TABLET PO ×4 (02:00→20:35)
[2024-10-11 05:34] LABS: Basophils Percent Auto 0.3 % (0.2-1.2); Eosinophils Absolute Auto 0.2 K/mm3 (0-0.3); Eosinophils Percent Auto 1.5 % (0-4.4); Hematocrit 24.7 % (37.0-47.0); Immature Granulocyte Absolute 0.11 K/mm3 (0.00-0.031); Immature Granulocyte Percent A 0.8 % (0-0.5); Immature Platelet Fraction Pct 5.4 % (0.9-11.2); Lymphocytes Absolute Auto 1.29 K/mm3 (0.9-3.2); Lymphocytes Percent Auto 9.1 % (18.3-44.2); Mean Corpuscular HGB Conc 32.4 g/dl (32-36); Mean Corpuscular Hemoglobin 29.1 pg (26-34); Mean Corpuscular Volume 89.8 fl (80-100); Mean Platelet Volume 10.5 fl (7.4-10.4); Monocytes Absolute Auto 0.8 K/mm3 (0.1-0.6); Monocytes Percent Auto 5.6 % (2.6-8.5); Neutrophils Absolute Auto 11.8 K/mm3 (1.3-6.7); Neutrophils Percent Auto 82.7 % (45.5-73.1); Platelet Count Result 129 k/mm3 (150-375); Red Blood Count 2.75 M/mm3 (4.2-5.4); Red Cell Distribution Width 13.6 % (11.5-14.5); White Blood Count 14.2 K/mm3 (4.5-10.0)
[2024-10-11 08:00] VITALS: BP 124/84; PULSE 107; RESP 16; TEMP 36.8; O2SAT 97
[2024-10-11] MEDS: DOCUSATE SODIUM 100 MG CAPSULE PO ×2 (08:43→17:41)
[2024-10-11] MEDS: POLYSACCHARIDE IRON COMPLEX 150 MG CAPSULE PO ×2 (08:43→17:41)
[2024-10-11] MEDS: MULTIVIT/MIN/PREN/FOL AC/IRON TABLET 1 TAB PO (08:43)
[2024-10-11] MEDS: SIMETHICONE 80 MG TAB.CHEW PO ×3 (08:43→17:41)
--- NOTE | 2024-10-11 09:37 | PM.OBPNVD ---
OB - PN: Subj Subjective Date/time seen: 10/11/24 09:37 Patient comments: pain well controlled and other (c/o rash) baby status: doing well OB - PN: Obj Data Labs 10/11/24 05:20 Labs: Laboratory Results - last 24 hr 10/11/24 05:20 WBC 14.2 H RBC 2.75 L Hgb 8.0 L Hct 24.7 L MCV 89.8 MCH 29.1 MCHC 32.4 RDW 13.6 Plt Count 129 L MPV 10.5 H Immature Gran % (Auto) 0.8 H Neut % (Auto) 82.7 H Lymph % (Auto) 9.1 L [place] % (Auto) 5.6 Eos % (Auto) 1.5 Baso % (Auto) 0.3 Lymph # (Auto) 1.29 [place] # (Auto) 0.8 H Eos # (Auto) 0.2 Baso # (Auto) 0.0 Abs Immat Gran (auto) 0.11 H Absolute Neuts (auto) 11.8 H Absolute Nucleated RBC 0.000 Nucleated RBC % 0.0 % Immature Plt Fraction 5.4 OB - PN A/P Plan day: 2 Plan: routine care and other (hydrocortisone cream for rash) Time Spent With Patient Time: Total time spent is greater than 50% in coordination of care (as documented) at patient's floor/unit and/or counseling patient: Exam Narrative: inc c/d/i rash mid abdomen? where gel from monitor was : Bimanual exam- vagina & uterus: other (Uterus firm, nt @U)
--- NOTE | 2024-10-11 12:11 | PC.NURSE ---
Per night nurse, last dose of Toradol not given due to IV infiltrating.
[2024-10-11] MEDS: HYDROCORTISONE 1% 30 GM CREAM 1 APPLIC TOPICAL (12:16)
[2024-10-11] MEDS: CALCIUM CARBONATE (TUMS) 500 MG (200 MG ELEMENTAL) (14:38)
[2024-10-11] MEDS: LIDOCAINE 5% PATCH 1 PATCH TRANSDERM (21:05)
[2024-10-11 21:10] VITALS: BP 109/65; PULSE 92; RESP 16; TEMP 36.8; O2SAT 99
[2024-10-11 22:55] VITALS: BP 107/66; PULSE 81; RESP 16; TEMP 36.3; O2SAT 97
[2024-10-12] MEDS: ACETAMINOPHEN 325 MG TABLET 650 MG PO ×2 (03:19→09:47)
[2024-10-12] MEDS: IBUPROFEN 600 MG TABLET PO ×2 (03:20→09:47)
--- NOTE | 2024-10-12 06:37 | P.PNOB_ITS ---
OB - PN: Subj Subjective Date/time seen: 10/12/24 06:37 Patient comments: no complaints, pain well controlled, tolerating diet and flatus present OB - PN: Obj Data Labs 10/11/24 05:20 OB - PN A/P Assessment and Plan (1) Term : Code(s): Z34.90 - Encounter for supervision of normal , unspecified, unspecified trimester Status: Acute Plan home Time Spent With Patient Time: Total time spent is greater than 50% in coordination of care (as documented) at patient's floor/unit and/or counseling patient: Review of Systems 2 Review of Systems: CONSTITUTIONAL: Denies fever, chills, or sweats. EYES: Denies visual changes, redness, or discharge. ENT: Denies rhinorrhea, congestion, sore throat, or otalgia. CARDIOVASCULAR: Denies chest pain, palpitations, or edema. RESPIRATORY: Denies cough or dyspnea. GASTROINTESTINAL: Reports umbilical abdominal pain, nausea, vomiting, loose stools GENITOURINARY: Denies dysuria or hematuria. SKIN: Denies rash or itching. MUSCULOSKELETAL: Denies back pain, joint pain, or myalgia. NEUROLOGIC: Denies headache, numbness, or weakness. PSYCHIATRIC: Denies anxiety or depression. All other systems reviewed are negative, except as documented in HPI. Exam 2 Narrative: inc c/d/i rash mid abdomen? where gel from monitor was : Bimanual exam- vagina & uterus: other (Uterus firm, nt @U)
[2024-10-12 07:35] VITALS: BP 118/66; PULSE 83; RESP 16; TEMP 36.7; O2SAT 98
[2024-10-12] MEDS: MULTIVIT/MIN/PREN/FOL AC/IRON TABLET 1 TAB PO (07:55)
[2024-10-12] MEDS: POLYSACCHARIDE IRON COMPLEX 150 MG CAPSULE PO (07:55)
[2024-10-12] MEDS: DOCUSATE SODIUM 100 MG CAPSULE PO (07:55)
[2024-10-12] MEDS: SIMETHICONE 80 MG TAB.CHEW PO (07:56)
--- NOTE | 2024-10-12 08:30 | PC.NURSE ---
Assisted patient to wake baby to feed. Baby woke easily and latches eagerly. She suckles off and on with some stimulation. Mom reports minimal soreness with latch. She is able to express good amounts of colostrum to assist with latching baby. She has a history of bilateral nipple piercing. Reviewed standard discharge information with patient including monitoring infant for required output, transition of stools, feeding 8-12 times every 24 hours, milk production, and follow up at [facility] and with elevator operator in the first week of life. Parents are encouraged to take the feeding log and continue to track feedings and output for the first week . Offered outpatient resources with [facility] referral (faxed to [facility]) and Services at [facility]. She has a Spectra breast pump for home use. Patient has the Mom/Baby Guide for further education and reference for common concerns, phone numbers, and guidance on when to call the doctor. A feeding plan was added to the infant?s discharge plan. Patient states that she has no further questions or concerns regarding .??
[2024-10-12] MEDS: MEASLES,MUMPS,RUBELLA VACCINE 0.5 ML VIAL SUB-Q (09:48)
--- NOTE | 2024-10-12 10:32 | PC.NURSE ---
Patient viewed the discharge video Mother & Baby Care, The First Two Weeks . Patient was given the opportunity and encouraged to ask questions. Patient verbalized understanding of information shared and has been given the mother/baby guide for home reference.
[2024-10-13 11:23] VITALS: BP 124/70; PULSE 95; RESP 18; TEMP 37.1; O2SAT 100
== END 2024-10-12 14:30 | disposition home or self-care (01) | DRG 540 ==
LOC: ANHLDR 10-10 00:26 → ANHOB2 10-10 06:56
PROVIDERS: Admitting Provider Obstetrics & Gynecology; Visit Provider Obstetrics & Gynecology
PROC: 10D00Z1 Extraction of Products of Conception, Low, Open Approach (ICD-10-PCS; CPT 59514; principal; 2024-10-09 23:00)
DX: O62.1 Secondary uterine inertia (principal); O75.2 Pyrexia during labor, not elsewhere classified; O76 Abnormality in fetal heart rate and rhythm complicating labor and delivery; Z3A.40 40 weeks gestation of pregnancy; Z37.0 Single live birth; Z87.891 Personal history of nicotine dependence; R21 Rash and other nonspecific skin eruption
CPT/HCPCS: 36415; 85025; 85055; 86593; 86703; 86850; 86900; 86901; 90710; A9270; G0432; J0290; J0456; J0690; J1200; J1885; J2270; J2274; J2405; J2590; J2795; J7120

== ENCOUNTER 2025-01-06 10:12 | Emergency (ER) | payer OTHER, SELFPAY ==
[2025-01-06 10:16] VITALS: BP 114/71; PULSE 96; RESP 16; TEMP 36.2; O2SAT 98
--- NOTE | 2025-01-06 10:31 | ED_ITS ---
HPI - URI/Sore Throat General Chief Complaint: Upper Respiratory Infection Stated Complaint: Flu Like Time Seen by Provider: 01/06/25 10:15 Source: patient Mode of arrival: ambulatory Limitations: no limitations History of Present Illness HPI Narrative: Patient is a 19-year-old female that presents with 2 days of fatigue, sore throat, nausea and feeling feverish. Has taken ibuprofen once. Patient is currently 3 months and is breast-feeding. Denies any congestion, cough, ear pain, vomiting or diarrhea. Related Data Home Medications ?Medication ?Instructions ?Recorded ?Confirmed ?Last Taken ?Type sertraline 50 mg tablet mg 01/06/25 Unknown History Allergies Allergy/AdvReac Type Severity Reaction Status Date / Time banana Allergy Mild Rash Verified 01/06/25 10:45 Review of Systems Review of Systems: All systems reviewed & are unremarkable except as noted in HPI and below Constitutional: Constitutional: Denies chills, Reports fatigue, Denies fever(s), Denies headache(s), Denies malaise and Denies weakness Eyes: Eyes: Denies blurry vision, Denies itchy eyes and Denies loss of vision ENT: Denies otalgia, Denies headache(s), Denies nasal congestion, Denies sinus pain and Reports sore throat Cardiovascular: Cardiovascular: Denies chest pain, Denies irregular heart rhythm and Denies dyspnea Respiratory: Respiratory: Denies cough and Denies dyspnea Gastrointestinal: Gastrointestinal: Denies abdominal pain, Denies diarrhea, Reports nausea and Denies vomiting Musculoskeletal: Musculoskeletal: Denies back pain, Denies myalgias and Denies arthralgias Integumentary/Breasts: Skin/Breast: Denies pruritus and Denies rash Neurologic: Denies headache(s), Denies loss of vision and Denies weakness Psychiatric: Psychiatric: Reports no additional psychiatric complaints Endocrine: Endocrine: Denies fatigue Allergic/Immunologic: Allergic/Immunologic: Denies itchy eyes PMFSH Past Medical History Medical History No significant past medical history Surgical History Surgical History No significant past surgical history Social History Social History Smoking status: Former smoker Alcohol intake: never Substance use: never Do You Feel Safe in your Home?: Yes Lack of Transportation: No Lack of Food: Never True Current Housing: I Have Housing Concerned About Future Housing: No Difficulty Paying Gas/Electric Bills: No Difficulty Paying for Meds: No Currently Unemployed: No Education: High School Diploma/GED Difficulty w/ Childcare or Family Care: No Gender identity (if verbalized by the patient): Female Spiritual care concerns: No Comments At time of signature, agree with nursing past medical, surgical, social and family history. There is no relevant family history pertinent to the presenting complaint. Exam Const: General: cooperative, healthy appearing, comfortable, no acute distress and well nourished Nutritional Appearance: well nourished Orientation/consciousness: patient oriented x3 Limitations: no limitations HENMT: Head: normal to inspection, normocephalic and atraumatic Ears: hearing grossly normal bilaterally, external ears normal, TM's normal bilaterally, EAC's normal and no periauricular adenopathy Face/Nose/Sinus: Normal external nose present, Abnormal mucous membranes and turbinates present erythematous bilateral and diffuse, normal facial exam, sinuses nontender and face symmetric Face and sinus: normal facial exam, sinuses nontender and face symmetric Mouth: Yes Normal oral and palatal mucosa present, Yes lip normal, Yes tongue normal, Yes Normal salivary glands and ducts present, Yes oropharynx normal and Yes moist mucous membranes Teeth and gingiva: dentition normal Throat: posterior oropharynx normal, tonsils normal and uvula midline Eyes: General: appearance normal, both eyes and all related structures Alignment and Position: alignment normal and position normal Periorbital: periorbital findings normal Eyelids: eyelids normal Pupils: Equal, round a nd reactive pupils present Neck: Neck: normal visual inspection, full ROM, no lymphadenopathy and supple Chest: Chest palpation & inspection: normal inspection of the chest and normal palpation of entire chest wall Resp: Effort & Inspection: normal respiratory effort and able to speak in complete sentences Auscultation: clear to auscultation bilaterally, no crackles, no rales, no rhonchi and no wheezes Cardio: Rate: regular rate Rhythm: regular rhythm Heart sounds: S1 normal heart sound present and S2 normal heart sound present GI: Inspection: normal to inspection Skin: General skin exam: normal color and no rashes or lesions noted Neuro: General: patient oriented x3 and moves all extremities Cranial nerves: Yes Equal, round and reactive pupils present Speech: normal speech Gait exam (Neuro): Normal gait present Extrem: General: normal to inspection, full ROM and no edema Psych: Appearance: grossly normal and well kempt Mental Status: mental status grossly normal Speech and movement: Normal speech and movement present Affect: normal affect Attitude: cooperative Thought process: Normal thought process present Course Course Emergency Course: Discharge instructions reviewed with patient, as well as provided in writing per nursing staff. The instructions also include specific and strict return/GO TO THE ER as well as f/u information. All questions have been answered, and the patient deny any further questions with discharge and discharge plan. Portions of this record may have been created with voice recognition software Level of Care: Express Care Visit Vital Signs Vital signs: Vital Signs Temperature 36.2 C L 01/06/25 10:16 Pulse Rate 96 01/06/25 10:16 Respiratory Rate 16 01/06/25 10:16 Blood Pressure 114/71 01/06/25 10:16 Pulse Oximetry 98 01/06/25 10:16 Oxygen Delivery Room Air 01/06/25 10:16 Temperature 36.2 C L 01/06/25 10:16 Pulse Rate 96 01/06/25 10:16 Respiratory Rate 16 01/06/25 10:16 Blood Pressure 114/71 01/06/25 10:16 Pulse Oximetry 98 01/06/25 10:16 Oxygen Delivery Room Air 01/06/25 10:16 Reviewed MDM - URI/Sore Throat MDM Narrative Medical decision making narrative: Pt well hydrated appearing, in no respiratory distress, hemodynamically stable. Recommend supportive care. The patient is stable at time of discharge the clinical impression was discussed and the patient was given the opportunity to ask questions, which were addressed as completely as possible given the information available at present. Anticipatory guidance and return to care precautions were discussed and the importance of primary care follow-up was stressed and encouraged. The patient voiced understanding of the plan, indications to return, and the need for follow-up. Exam findings show no acute concerns or changes Patient is appropriate for outpatient treatment and follow-up. Differential diagnosis considered: Tariq virus, strep pharyngitis, allergic rhinitis, upper respiratory tract infection, sinusitis, rhinosinusitis, nasopharyngitis. viral pharyngitis, otitis media, otitis externa, otitis effusion, foreign body, cerumen impaction, viral syndrome, and influenza.? Medical Records Attestation: I reviewed the patient's medical records. Lab Data Attestation: I reviewed the patient's lab results. Labs: Lab Results 01/06/25 Range/Units 10:19 POC Influenza A Ag Negative (Negative) POC Influenza B Ag Negative (Negative) POC SARS CoV-2 Ag Negative (Negative) POC Grp A Strep Screen Negative (Negative) Discharge Plan Discharge Clinical Impression: Upper respiratory infection Qualifiers: URI type: unspecified viral URI Qualified Code(s): J06.9 - Acute upper respiratory infection, unspecified Patient Disposition: Home Condition: Stable Instructions: Upper Respiratory Infection (ED) Additional Instructions: Your rapid strep swab was negative today at [facility]. A throat culture will be sent to the laboratory for further testing. If the test is positive, you will receive a phone call within 48 hours and an appropriate antibiotic will be initiated at that time. Your Covid and flu are both negative Your symptoms are likely due to a viral illness, which is not treated with antibiotics. Viral symptoms can be present for up to a few weeks. -For pain/fever, you may take: Tylenol 650-1000mg by mouth every 4-6 hours. Do not exceed 4000mg in 24 hours. Advil (Ibuprofen) 600 mg by mouth every 6 hours. Do not exceed 2400mg in 24 hours. 8 AM: Tylenol 11 AM: Ibuprofen 2 PM: Tylenol 5 PM: Ibuprofen 8 PM: Tylenol 11 PM: Ibuprofen 2 AM: Tylenol 5 AM: Ibuprofen -Antihistamine medication such as Benadryl/Zyrtec at night and Claritin/Nia during the day can help improve symptoms. -Use Flonase twice a day for 5 days then daily to help reduce the inflammation and dry up your sinuses. -You can also use Sudafed behind the pharmacy counter(12 or 24 hour). Be sure to drink plenty of water with these medications at least 8 ounces with every dose and it is important to drink 8 to 10 glasses of water per day. Water is a natural decongestant -Eat and drink things that are easy to swallow, like tea or soup, or popsicles. -Oral rinses such as: Salt water gargles and/or may use topical anesthetic (eg. Chloraseptic spray) or lozenges to relieve dryness or throat pain). -Frequent hand washing or hand dental assistant instructor is one of the best ways to prevent spread of infection. -Using a vaporizer or humidifier at night will also help thin secretions and help with coughing up phlegm. Call your Primary Care Doctor and make a follow-up appointment in 3 days. If your cough worsens, you develop a fever greater than 103, you develop shaking chills, a fast heartbeat, trouble breathing and/or feel you are are breathing much faster than usual, call your Primary Care Doctor or go to the ER. Patient Language: Divehi Prescriptions: New benzonatate 100 mg capsule 100 mg PO BID PRN (Reason: cough) Qty: 14 0RF fluticasone propionate [Flonase Allergy Relief] 50 mcg/actuation spray,suspe nsion 1 spray intranasal DAILY Qty: 16 0RF Rx Instructions: administer into each nostril No Action sertraline 50 mg tablet Follow-up/Referrals: Clifford Holland MD [Physician] - 3 Days Time of Disposition: 11:02
--- OUTSIDE RECORDS SUMMARY | 2025-01-06 10:43 | XMS_ITS | Encounter Summary ---
Author Organization [facility] Address [address] [place] [address] Care Team Providers Care Public Health Outreach Worker Name Role Phone Romina Brown NP Primary Care Provider Unav ailable Ronaldo Treviño MD Primary Care Provider [phone] Erica Cabrera PA-C Primary Care Provider [phone] Newton Mcclure MD Primary Care Provider [phone] Encounter Details Date Type Department Care Team (Late st Contact Info) Description 08/17/2017 Abstract [facility] CONVERSION [address] [place] [address] , Generic ConversionMD Social History Tobacco Use Types Packs/Day Years Used Date Smoking Tobacco: Never Assessed Comments Unknown Sex and Gender Information Value Date Recorded Sex Assigned at Not on file Legal Sex Female 10:45 PM [employer] Gender Identity Not on file Sexual Orientation Not on file documented as of this encounter Plan of Treatment Not on file documented as of this encounter Visit Diagnoses Not on filedocumented in this encounter Additional Health Concerns Infection Onset Date Last Indicated Resolved Time COVID-19 Rule Out 11/26/2022 11/26/2022 11/26/2022 9:32 AM CDT documented as of this encounter Care Teams Public Health Outreach Worker Relationship Specialty Start Date End Date Romina Brown NP PCP - General NURSE PRACTITIONER 08/19/20 04/03/21 [place] [address] [place] [address] PCP - General FAMILY PRACTICE 04/04/21 06/25/23 Erica Cabrera PA-C [address] [place] [address] PCP - General PHYSICIAN SAND SLINGER OPERATOR 06/26/23 08/26/24 [place] [id number] [address] PCP - General INTERNAL MEDICINE 08/27/24 documented as of this encounter
--- OUTSIDE RECORDS SUMMARY | 2025-01-06 10:43 | XMS_ITS | Clinical Summary ---
Author Organization [facility] Address [address] [place] [address] Care Team Providers Care Integrated Logistics Support Manager Name Role Phone Newton Mcclure MD Primary Care Provider [phone] Allergies No known active allergies Medications hydrOXYzine (VISTARIL) 25 MG capsuleIndications :Anxiety Take 1 capsule (25 mg total) by mouth 3 (three) times daily as needed for Anxiety. 30 capsule 05/14/20 23 Active levonorgestrel (KYLEENA) 19.5 MG IUD 1 each (19.5 mg total) by Intrauterine route once. 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 ([facility]) TAKE 1 TABLET BY MOUTH EVERY DAY [...] on file Legal Sex Female 10:45 PM PRINTED CIRCUIT BOARDS CONTACT PRINTER Gender Identity Not on file Sexual Orientation Not on file Last Filed Vital Signs Vital Sign Reading Time Taken Comments Blood Pressure 98/67 07/31/2023 11:20 AM PRINTED CIRCUIT BOARDS CONTACT PRINTER Pulse 80 07/31/2023 11:20 AM PRINTED CIRCUIT BOARDS CONTACT PRINTER Temperature 36.4 C (97.6 F) 07/31/2023 11:20 AM PRINTED CIRCUIT BOARDS CONTACT PRINTER Respiratory Rate 16 07/31/2023 11:2 0 AM PRINTED CIRCUIT BOARDS CONTACT PRINTER Oxygen Saturation 96% 07/31/2023 11: 20 AM PRINTED CIRCUIT BOARDS CONTACT PRINTER Inhaled Oxygen Concentration - - Weight 53.4 kg (117 lb 12.8 oz) 024 11:20 AM PRINTED CIRCUIT BOARDS CONTACT PRINTER Height 160 cm (5' 3) 07/31/2023 11:20 AM PRINTED CIRCUIT BOARDS CONTACT PRINTER Body Mass Index 20.87 07/31/2023 11:20 AM PRINTED CIRCUIT BOARDS CONTACT PRINTER Plan of Treatment Health Maintenance Due Date Last Done Comments Cervical Cancer Screening Pap Smear (Age 21 to 29) Every 3 Years 2003 Cervical Cancer Screening 2003 Hepatitis B Vaccines (3 of 3 - 3-dose series) 08/08/2004 06/13/2004, 2003 HPV Vaccines (1 - 3-dose series) 09/09/2018 Meningococcal B Vaccine (1 of 2 - Standard) 2019 COVID-19 Vaccine ( - season) 2024 PHQ-2 (Physician [place]) 06/03/2024 07/31/2023 Annual Physical 06/26/2024 06/26/2023 DTaP, [...] Comments HEPATITIS PANEL,ACUTE Routine 07/31/2023 12:14 PM PRINTED CIRCUIT BOARDS CONTACT PRINTER Screening examination for STD (sexually transmitted disease) from Last 3 Months or Most Recently Relevant to Health Maintenance Results * HEPATITIS PANEL,ACUTE (07/31/2023 12:14 PM PRINTED CIRCUIT BOARDS CONTACT PRINTER) HAV IGM NON-REACT GISELL NON-REACT GISELL [facility] Comment: For additional information, please refer to http://CommonTime/faq/GUK568 (This link is being provided for informational/ educational purposes only.) HEPATITIS B SURFACE AG NON-REACT GISELL NON-REACT GISELL [facility] Comment: For additional information, please refer to http://CommonTime/faq/AHR463 (This link is being provided for informational/ educational purposes only.) HEP B CORE IGM NON-REACT GISELL NON-REACT GISELL [facility] Comment: For additional information, please refer to http://CommonTime/faq/FWH474 (This link is being provided for informational/ educational purposes only.) HEPATITIS C AB NON-REACT GISELL NON-REACT GISELL [facility] Comment: HCV antibody was non-reactive. There is no laboratory evidence of HCV infection. In most cases, no further action is required. However, if recent HCV exposure is suspected, a test for HCV RNA (test code 37828) is suggested. For additional information please refer to http://CommonTime/faq/RYK53p0 (This link is being provided for informational/ educational purposes only.) 07/31/2023 12:1 4 PM PRINTED CIRCUIT BOARDS CONTACT PRINTER 08/01/2023 4:04 AM PRINTED CIRCUIT BOARDS CONTACT PRINTER Narrative Resulting Agency Comment Performing Organization Information: Site ID: [id number] Name: [facility] Address: [address] [address] Director: Bridget Osborne MD us Erica Cabrera PA-C LABORATORY Final Result [facility] [employer] [facility] [address] [place] [address], XU from Last 3 Months or Most Recently Relevant to Health Maintenance Care Teams Integrated Logistics Support Manager Relationship Specialty [place] [address] [address] PCP - General INTERNAL MEDICINE 08/27/24
--- OUTSIDE RECORDS SUMMARY | 2025-01-06 10:43 | XMS_ITS | Encounter Summary ---
Author Organization [facility] Address [address] [place] [address] Care Team Providers Care Pega Developer Name Role Phone Erica Cabrera PA-C Primary Care Provider [phone] Newton Mcclure MD Primary Care Provider [phone] Encounter Details Date Type Department Care Team (Late st Contact Info) Description 07/12/2023 [employer] Message Enc [facility] Medical Group Family & Internal Medicine [address] [address] Erica Carbera [place] [address] Bowel issue Social History Tobacco [...] on file Legal Sex Female 10:45 PM VP ANALYTICS Gender Identity Not on file Sexual Orientation Not on file documented as of this encounter Progress Notes * Jayshree Tinoco RN - 07/24/2023 9:01 AM CST Pt has responded via [employer] message. ANALYTICS * Jayshree Tinoco RN - 07/23/2023 4:16 PM CST Sent a [employer] message to the pt asking how she was doing. ANALYTICS * Erica Cabrera PA-C - 07/15/2023 12:07 [...] she more likely has a viral infection. ANALYTICS * Jinny Peters RN - 07/15/2023 11:55 AM CST Prozac recently ordered. ANALYTICS documented in this encounter Plan of Treatment Not on file documented as of this encounter Visit Diagnoses Not on filedocumented in this encounter Additional Health Concerns Assessment Noted Time PHQ-9 Depression Total Score: 7 05/14/20 23 7:37 AM VP ANALYTICS documented as of this encounter Care Teams Pega Developer Relationship Specialty Start Date End Date Erica Cabrera PA-C PCP - General PHYSICIAN LOCKER ROOM SUPERVISOR 06/26/23 08/26/24 [place] [address] [place] [address] PCP - General INTERNAL MEDICINE 08/27/24 documented as of this encounter
--- OUTSIDE RECORDS SUMMARY | 2025-01-06 10:43 | XMS_ITS | Clinical Summary ---
Author Organization [facility] Address [address] [place] [address] Care Team Providers Care Oil Winterizer Name Role Phone Helen Medrano MD Primary Care Provider + Allergies Active Allergy Reactions Criticality Noted Date Comments Banana Hives Medium 01/01/2024 Medications vit [id number]-dh a 27mg iron- 800 mcg-250 mg capsule [...] Recommend colten to help ease nausea. Contact secretary to the vice president for further instructions if nausea continues. Discussed preggy pop drops as well to help ease nausea. Will send zofran to patient pharmacy 20 tablets, follow up with WASHER ENGINEER for continued instructions. Anxiety 05/14/2023 Depression [...] Comments Blood Pressure 111/72 04/13/2024 2:15 PM CONSTRUCTION WORKER Pulse 94 04/13/2024 2:15 PM CONSTRUCTION WORKER Temperature 36.4 C (97.6 F) 04/13/2024 2:15 PM CONSTRUCTION WORKER Respiratory Rate 20 04/13/2024 2:15 PM CONSTRUCTION WORKER Oxygen Saturation 99% 04/13/2024 2:15 PM CONSTRUCTION WORKER Inhaled Oxygen Concentration - - Weight 55.4 kg (122 lb 1.6 oz) 04/13/2024 2:15 P M CONSTRUCTION WORKER Height 160 cm (5' 2.99) 04/13/2024 2:15 PM CONSTRUCTION WORKER Body Mass Index 21.63 04/13/2024 2:15 PM CONSTRUCTION WORKER Plan of Treatment Health Maintenance Due Date Last Done Comments Cervical Cancer Screening 2003 Chlamydia and Gonorrhea (GC/ CT) Screening 2003 Depression Screening 2003 Hepatitis C Screening 2003 HPV Vaccines (1 - 3-dose series) 09/09/2018 Meningococcal B Vaccine (1 o f 2 - Standard) 2019 Regular Well Visit/Exam 18-64 09/09/2021 Influenza Vaccine (#1) 2025 5, 02/26/2013, 04/18/2010, Additional history exists DTaP/Tdap/Td Vaccine (7 - Td or Tdap) 03/18/2025 03/18/2015, 09/21/2008, 12/14/2004, Additional history exists Hepatitis B Screening Completed 06/13/2004 , 2003, 2003 Pneumococcal vaccine <65 Completed 005, 03/08/2004, 01/12/2004, Additional history exists Varicella Vaccines Completed 09/21/2008, 09/12/2004 Meningococcal Vaccine Completed 02/25/2021, 015 Insurance [facility] Care Teams Oil Winterizer Relationship Specialty Start Date End Date Helen Medrano MD PCP - General 10/01/17
--- OUTSIDE RECORDS SUMMARY | 2025-01-06 10:43 | XMS_ITS | Encounter Summary ---
Author Organization [facility] Address [address] [place] [address] Care Team Providers Care Electrical Controls Engineer Name Role Phone rEica Cabrera PA-C Primary Care Provider [phone] Newton Mcclure MD Primary Care Provider [phone] Encounter Details Date Type Department Care Team (Late st Contact Info) Description 07/04/2023 [employer] Message Enc [facility] Medical Group Family & Internal Medicine [address] [address] Erica Cabrera PA-C [facility] [place] [address] Test results. Social History Tobacco [...] on file Legal Sex Female 10:45 PM DELIVER DRIVER Gender Identity Not on file Sexual Orientation Not on file documented as of this encounter Progress Notes * Jinny Peters RN - 07/09/2023 1:34 PM CST Patient made aware of her results on 07/05/2023 VER DRIVER documented in this encounter Plan of Treatment Not on file documented as of this encounter Visit Diagnoses Not on filedocumented in this encounter Additional Health Concerns Assessment Noted Time PHQ-9 Depression Total Score: 7 05/14/20 23 7:37 AM DELIVER DRIVER documented as of this encounter Care Teams Electrical Controls Engineer Relationship Specialty Start Date End Date Erica Cabrera PA-C PCP - General PHYSICIAN GOLF CART REPAIRER 06/26/23 08/26/24 [place] [address] [place] [address] PCP - General INTERNAL MEDICINE 08/27/24 documented as of this encounter
--- OUTSIDE RECORDS SUMMARY | 2025-01-06 10:43 | XMS_ITS | Encounter Summary ---
Author Organization [facility] Address [address] [place] [address] Care Team Providers Care Pharmacy Salesperson Name Role Phone Erica Cabrera PA-C Primary Care Provider [phone] Newton Mcclure MD Primary Care Provider [phone] Encounter Details Date Type Department Care Team (Late st Contact Info) Description 07/23/2023 [employer] Message Enc [facility] Medical Group Family & Internal Medicine [address] [address] Skinny [facility] Provider FLuoxetine Social History Tobacco Use [...] on file Legal Sex Female 10:45 PM PARKING CONTROL OFFICER Gender Identity Not on file Sexual Orientation Not on file documented as of this encounter Progress Notes * Ashley Kebede RN - 07/30/2023 1:25 PM CST Nurse called and spoke with pt. Appt made for tomorrow ING CONTROL OFFICER * Erica Cabrera PA-C - 07/30/2023 11:57 AM CST With her symptoms I would recommend decreasing her Prozac to 20 mg daily until office visit. If sheis having severe symptoms she needs to go to the emergency room. Thank you! ING CONTROL OFFICER * Prisca Bruno NP - 07/30/2023 10:32 AM CST Fyi: Patient has appt. 08/07/23. ING CONTROL OFFICER documented in this encounter Plan of Treatment Not on file documented as of this encounter Visit Diagnoses Diagnosis Anxiety Anxiety state, unspecified PTSD (post-traumatic stress disorder) Posttraumatic stress disorder Depression, unspecified depression type documented in this encounter Additional Health Concerns Assessment Noted Time PHQ-9 Depression Total Score: 7 05/14/20 23 7:37 AM PARKING CONTROL OFFICER documented as of this encounter Care Teams Pharmacy Salesperson Relationship Specialty Start Date End Date Erica Cabrera PA-C PCP - General PHYSICIAN INDUSTRIAL ROOF PLUMBER 06/26/23 08/26/24 [place] [address] [place] [address] PCP - General INTERNAL MEDICINE 08/27/24 documented as of this encounter
[2025-01-06 10:47] LABS: EDCOVIDSCREEN Negative (Negative); EDINFLUASCREEN Negative (Negative); EDINFLUBSCREEN Negative (Negative); EDSTREPNEGPOS1 Negative (Negative)
== END 2025-01-06 11:05 | disposition home or self-care (01) ==
PROVIDERS: Emergency Provider Nurse Practitioner Family
DX: J06.9 Acute upper respiratory infection, unspecified (principal); Z20.822 Contact with and (suspected) exposure to COVID-19; Z87.891 Personal history of nicotine dependence
CPT/HCPCS: 87081; 87426; 87804; 87880; 99213; G0463

== ENCOUNTER 2025-02-22 12:42 | Emergency (ER) | payer OTHER, SELFPAY ==
[2025-02-22 12:48] VITALS: BP 110/66; PULSE 98; RESP 18; TEMP 36.4; O2SAT 98
--- OUTSIDE RECORDS SUMMARY | 2025-02-22 13:07 | XMS_ITS | Clinical Summary ---
Author Organization [facility] Address [address] [place] [address] Care Team Providers Care Concrete Finishing Machine Operator Name Role Phone Helen Medrano MD Primary Care Provider + Allergies Active Allergy Reactions Criticality Noted Date Comments Banana Hives Medium 01/01/2024 Medications vit 04-adld-tilrp-dh a 27mg iron- 800 mcg-250 mg capsule [...] Recommend colten to help ease nausea. Contact nurse sitter for further instructions if nausea continues. Discussed preggy pop drops as well to help ease nausea. Will send zofran to patient pharmacy 20 tablets, follow up with AUTOMATION SOFTWARE ENGINEER for continued instructions. Anxiety 05/14/2023 Depression [...] Comments Blood Pressure 111/72 04/13/2024 2:15 PM IN HOUSE COUNSEL Pulse 94 04/13/2024 2:15 PM IN HOUSE COUNSEL Temperature 36.4 C (97.6 F) 04/13/2024 2:15 PM IN HOUSE COUNSEL Respiratory Rate 20 04/13/2024 2:15 PM IN HOUSE COUNSEL Oxygen Saturation 99% 04/13/2024 2:15 PM IN HOUSE COUNSEL Inhaled Oxygen Concentration - - Weight 55.4 kg (122 lb 1.6 oz) 04/13/2024 2:15 P M IN HOUSE COUNSEL Height 160 cm (5' 2.99) 04/13/2024 2:15 PM IN HOUSE COUNSEL Body Mass Index 21.63 04/13/2024 2:15 PM IN HOUSE COUNSEL Plan of Treatment Health Maintenance Due Date [...] 09/12/2004 Meningococcal Vaccine Completed 02/25/2021, 015 Insurance [facility] Care Teams Concrete Finishing Machine Operator Relationship Specialty Start Date End Date Helen Medrano MD PCP - General 10/01/17
--- OUTSIDE RECORDS SUMMARY | 2025-02-22 13:10 | XMS_ITS | Encounter Summary ---
Author Organization [facility] Address [address] [place] [address] Care Team Providers Care Burn Center Nurse Name Role Phone Erica Cabrera PA-C Primary Care Provider [phone] Newton Mcclure MD Primary Care Provider [phone] Encounter Details Date Type Department Care Team (Late st Contact Info) Description 07/23/2023 [employer] Message Enc [facility] Medical Group Family & Internal Medicine [address] [address] Skinny [facility] [...] on file Legal Sex Female 10:45 PM DEPORTATION OFFICER Gender Identity Not on file Sexual Orientation Not on file documented as of this encounter Progress Notes * Ashely Kebede RN - 07/30/2023 1:25 PM CST Nurse called and spoke with pt. Appt made for tomorrow RTATION OFFICER * Erica Cabrera PA-C - 07/30/2023 11:57 AM CST With her symptoms I would recommend decreasing her Prozac to 20 mg daily until office visit. If sheis having severe symptoms she needs to go to the emergency room. Thank you! RTATION OFFICER * Prisca Bruno NP - 07/30/2023 10:32 AM CST Fyi: Patient has appt. 08/07/23. RTATION OFFICER documented in this encounter Plan of Treatment Not on file documented as of this encounter Visit Diagnoses Diagnosis Anxiety Anxiety state, unspecified PTSD (post-traumatic stress disorder) Posttraumatic stress disorder Depression, unspecified depression type documented in this encounter Additional Health Concerns Assessment Noted Time PHQ-9 Depression Total Score: 7 05/14/20 23 7:37 AM DEPORTATION OFFICER documented as of this encounter Care Teams Burn Center Nurse Relationship Specialty Start Date End Date Erica Cabrera PA-C PCP - General PHYSICIAN BLOOD OR BLOOD BANK TECHNICIAN 06/26/23 08/26/24 [place] [address] [place] [address] PCP - General INTERNAL MEDICINE 08/27/24 documented as of this encounter
--- OUTSIDE RECORDS SUMMARY | 2025-02-22 13:10 | XMS_ITS | Encounter Summary ---
Author Organization [facility] Address [address] [place] [address] Care Team Providers Care Pressing Machine Tender Name Role Phone Romina Brown NP Primary Care Provider Unav ailable Ronaldo Treviño MD Primary Care Provider [phone] Erica Cabrera PA-C Primary Care Provider [phone] Newton Mcclure MD Primary Care Provider [phone] Encounter Details Date Type Department Care Team (Late st Contact Info) Description 08/17/2017 Abstract [facility] CONVERSION [address] [place] [address] , Generic ConversionMD Social History Tobacco Use Types Packs/Day Years Used Date Smoking Tobacco: Never Assessed Comments Unknown Sex and Gender Information Value Date Recorded Sex Assigned at Not on file Legal Sex Female 10:45 PM CABINET MAKER Gender Identity Not on file Sexual Orientation Not on file documented as of this encounter Plan of Treatment Not on file documented as of this encounter Visit Diagnoses Not on filedocumented in this encounter Additional Health Concerns Infection Onset Date Last Indicated Resolved Time COVID-19 Rule Out 11/26/2022 11/26/2022 11/26/2022 9:32 AM CDT documented as of this encounter Care Teams Pressing Machine Tender Relationship Specialty Start Date End Date Romina Brown NP PCP - General NURSE PRACTITIONER 08/19/20 04/03/21 [place] [address] [place] [address] PCP - General FAMILY PRACTICE 04/04/21 06/25/23 rEica Cabrera PA-C [address] [place] [address] PCP - General PHYSICIAN MACHINERY MECHANIC 06/26/23 08/26/24 [place] [address] [address] PCP - General INTERNAL MEDICINE 08/27/24 documented as of this encounter
--- OUTSIDE RECORDS SUMMARY | 2025-02-22 13:10 | XMS_ITS | Encounter Summary ---
Author Organization [facility] Address [address] [place] [address] Care Team Providers Care Financial Services Director Name Role Phone Erica Cabrera PA-C Primary Care Provider [phone] Newton Mcclure MD Primary Care Provider Encounter Details Date Type Department Care Team (Late st Contact Info) Description 07/12/2023 [employer] Message Enc [facility] Medical Group Family & Internal Medicine [address] [address] Erica Cabrera PA-C [facility] [place] [address] Bowel issue Social History Tobacco [...] on file Legal Sex Female 10:45 PM SECY Gender Identity Not on file Sexual Orientation Not on file documented as of this encounter Progress Notes * Jayshree Tinoco RN - 07/24/2023 9:01 AM CST Pt has responded via [employer] message. * Jayshree Tinoco RN - 07/23/2023 4:16 PM CST Sent a [employer] message to the pt asking how she was doing. * Erica Cabrera PA-C - 07/15/2023 12:07 [...] she more likely has a viral infection. * Jinny Peters RN - 07/15/2023 11:55 AM CST Prozac recently ordered. documented in this encounter Plan of Treatment Not on file documented as of this encounter Visit Diagnoses Not on filedocumented in this encounter Additional Health Concerns Assessment Noted Time PHQ-9 Depression Total Score: 7 05/14/20 23 7:37 AM SECY documented as of this encounter Care Teams Financial Services Director Relationship Specialty Start Date End Date Erica Cabrera PA-C PCP - General PHYSICIAN NATIONAL SALES REPRESENTATIVE 06/26/23 08/26/24 [place] [address] [place] [address] PCP - General INTERNAL MEDICINE 08/27/24 documented as of this encounter
--- OUTSIDE RECORDS SUMMARY | 2025-02-22 13:10 | XMS_ITS | Encounter Summary ---
Author Organization [facility] Address [address] [place] [address] Care Team Providers Care Stacker Name Role Phone Erica Cabrera PA-C Primary Care Provider [phone] Newton Mcclure MD Primary Care Provider [phone] Encounter Details Date Type Department Care Team (Late st Contact Info) Description 07/04/2023 [employer] Message Enc [facility] Medical Group Family & Internal Medicine [address] [address] Erica Cabrera PA-C [facility] [place] [address] Test results. Social History Tobacco [...] on file Legal Sex Female 10:45 PM BRIAR WOOD SORTER Gender Identity Not on file Sexual Orientation Not on file documented as of this encounter Progress Notes * Jinny Peters RN - 07/09/2023 1:34 PM CST Patient made aware of her results on 07/05/2023 R WOOD SORTER documented in this encounter Plan of Treatment Not on file documented as of this encounter Visit Diagnoses Not on filedocumented in this encounter Additional Health Concerns Assessment Noted Time PHQ-9 Depression Total Score: 7 05/14/20 23 7:37 AM BRIAR WOOD SORTER documented as of this encounter Care Teams Stacker Relationship Specialty Start Date End Date Erica Cabrera PA-C PCP - General PHYSICIAN GLOBAL DIRECTOR AIR AND CLIMATE CHANGE 06/26/23 08/26/24 [place] [address] [place] [address] PCP - General INTERNAL MEDICINE 08/27/24 documented as of this encounter
--- OUTSIDE RECORDS SUMMARY | 2025-02-22 13:10 | XMS_ITS | Clinical Summary ---
Author Organization [facility] Address [address] [place] [address] Care Team Providers Care Jr. Systems Administrator Name Role Phone Newton Mcclure MD Primary Care Provider [phone] Allergies No known active allergies Medications hydrOXYzine (VISTARIL) 25 MG capsuleIndications :Anxiety Take 1 capsule (25 mg total) by mouth 3 (three) times daily as needed for Anxiety. 30 capsule 05/14/20 23 Active levonorgestrel (KYLEENA) 19.5 MG IUD 1 each (19.5 mg total) by Intrauterine route once. 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 ([facility]) TAKE 1 TABLET BY MOUTH [...] on file Legal Sex Female 10:45 PM BLAST FURNACE SUPERVISOR Gender Identity Not on file Sexual Orientation Not on file Last Filed Vital Signs Vital Sign Reading Time Taken Comments Blood Pressure 98/67 07/31/2023 11:20 AM BLAST FURNACE SUPERVISOR Pulse 80 07/31/2023 11:20 AM BLAST FURNACE SUPERVISOR Temperature 36.4 C (97.6 F) 07/31/2023 11:20 AM BLAST FURNACE SUPERVISOR Respiratory Rate 16 07/31/2023 11:2 0 AM BLAST FURNACE SUPERVISOR Oxygen Saturation 96% 07/31/2023 11: 20 AM BLAST FURNACE SUPERVISOR Inhaled Oxygen Concentration - - Weight 53.4 kg (117 lb 12.8 oz) 024 11:20 AM BLAST FURNACE SUPERVISOR Height 160 cm (5' 3) 07/31/2023 11:20 AM BLAST FURNACE SUPERVISOR Body Mass Index 20.87 07/31/2023 11:20 AM BLAST FURNACE SUPERVISOR Plan of Treatment Health Maintenance Due Date Last Done Comments Cervical Cancer Screening Pap Smear (Age 21 to 29) Every 3 Years 2003 Cervical Cancer Screening 2003 Hepatitis B Vaccines (3 of 3 - 3-dose series) 08/08/2004 06/13/2004, 2003 HPV Vaccines (1 - 3-dose series) 09/09/2018 Meningococcal B Vaccine (1 of 2 - Standard) 2019 PHQ-2 (Physician Albers) 06/03/2024 07/31/2023 Annual Physical 06/26/2024 06/26/2023 COVID-19 Vaccine ( - season) 2025 DTaP, Tdap and Td Vaccines (7 - [...] Comments HEPATITIS PANEL,ACUTE Routine 07/31/2023 12:14 PM BLAST FURNACE SUPERVISOR Screening examination for STD (sexually transmitted disease) from Last 3 Months or Most Recently Relevant to Health Maintenance Results * HEPATITIS PANEL,ACUTE (07/31/2023 12:14 PM BLAST FURNACE SUPERVISOR) HAV IGM NON-REACT GISELL NON-REACT GISELL [facility] Comment: For additional information, please refer to http://[employer]/faq/LBD949 (This link is being provided for informational/ educational purposes only.) HEPATITIS B SURFACE AG NON-REACT GISELL NON-REACT GISELL [facility] Comment: For additional information, please refer to http://[employer]/faq/MMY395 (This link is being provided for informational/ educational purposes only.) HEP B CORE IGM NON-REACT GISELL NON-REACT GISELL [facility] Comment: For additional information, please refer to http://[employer]/faq/CHK478 (This link is being provided for informational/ educational purposes only.) HEPATITIS C AB NON-REACT GISELL NON-REACT GISELL [facility] Comment: HCV antibody was non-reactive. There is no laboratory evidence of HCV infection. In most cases, no further action is required. However, if recent HCV exposure is suspected, a test for HCV RNA (test code 51452) is suggested. For additional information please refer to http://[employer]/faq/OIY31q5 (This link is being provided for informational/ educational purposes only.) 07/31/2023 12:1 4 PM BLAST FURNACE SUPERVISOR 08/01/2023 4:04 AM BLAST FURNACE SUPERVISOR Narrative Resulting Agency Comment Performing Organization Information: Site ID: [id number] Name: [facility] Address: [address] [address] Director: Bridget Osborne MD us Erica Cabrera PA-C LABORATORY Final Result [facility] [id number] [place] [address], [place] from Last 3 Months or Most Recently Relevant to Health Maintenance Care Teams Jr. Systems Administrator Relationship Specialty [place] [id number] [address] PCP - General INTERNAL MEDICINE 08/27/24
--- NOTE | 2025-02-22 13:23 | ED.SKABFB ---
HPI - Skin/Abscess/Foreign Bdy General Chief complaint: Skin/Abscess/Foreign Body Stated complaint: LT Foot 1st Toe infection Time Seen by Provider: 02/22/25 13:10 Source: patient, RN notes reviewed and old records reviewed Mode of arrival: ambulatory Limitations: no limitations History of Present Illness HPI narrative: 19year old female who presents to [facility] care with complaints of left great toe being red and swollen around her nail and noted some drainage from her nail last night. Patient reports that she was messing with the toe last night and thinks she cut out an ingrown nail. Patient reports that she has been soaking foot daily with warm water and Epsom Salt cleaning with peroxide and also applying antibiotic ointment. Patient reports that she had baby 4 months ago and had tetanus update at that time.Patient reports discomfort to left great toe mild unless palpated then is worse. Patient reports that she is . MD complaint: abscess/boil and other (paronychia) Onset (ago): week(s) (increased symptoms for 2 weeks) Tetanus up to date: yes Severity scale (1-10): 3 Treatments prior to arrival: OTC topical medication and other (soaked toe and cleansed with peroxide and has applied antibiotic ointment) Related Data Home Medications ?Medication ?Instructions ?Recorded ?Confirmed ?Last Taken ?Type sertraline 50 mg tablet mg 01/06/25 Unknown History Allergies Allergy/AdvReac Type Severity Reaction Status Date / Time banana Allergy Mild Rash Verified 02/22/25 12:58 Review of Systems Review of Systems: CONSTITUTIONAL: Denies fever, chills, or sweats. CARDIOVASCULAR: Denies chest pain, palpitations, or edema. RESPIRATORY: Denies cough or dyspnea. GASTROINTESTINAL: Denies abdominal pain, nausea, vomiting SKIN: Reports redness and swelling to left great toe with greenish drainage from under end of nail last night after she took tweezer and cut side of nail, has had increased symptoms for past 2 weeks. MUSCULOSKELETAL: Denies myalgia. NEUROLOGIC: Denies headache, numbness All systems reviewed & are unremarkable except as noted in HPI and below PMFSH Past Medical History Medical History Ear infection Strep throat Post depression No significant past medical history Surgical History Surgical History Status post wisdom tooth extraction No significant past surgical history Social History Social History Smoking status: Former smoker Alcohol intake: never Substance use: never Do You Feel Safe in your Home?: Yes Lack of Transportation: No Lack of Food: Never True Current Housing: I Have Housing Concerned About Future Housing: No Difficulty Paying Gas/Electric Bills: No Difficulty Paying for Meds: No Currently Unemployed: No Education: High School Diploma/GED Difficulty w/ Childcare or Family Care: No Gender identity (if verbalized by the patient): Female Spiritual care concerns: No Comments At time of signature, agree with nursing past medical, surgical, social and family history. There is no relevant family history pertinent to the presenting complaint Exam Narrative: GENERAL: Well-appearing, well-nourished, and in no acute distress. HEAD: Normocephalic, atraumatic. EYES: PERRLA and EOMI. ENT: Nares clear, no rhinorrhea or epistaxis. Mucous membranes moist. NECK: Supple. no lymphadenopathy CHEST: Clear to auscultation. No respiratory distress. SAO2 98% on room air HEART: Regular rate and rhythm. No murmur heard. Normal peripheral pulses. ABDOMEN: Soft, nontender, nondistended, normal active bowel sounds. EXTREMITIES: Normal range of motion. No edema. SKIN: Warm, dry. Erythema, induration, tenderness, to skin tissue around left great toe for the past month with increased symptoms for the past 2 week. Patient reports that she cut ingrown nail out last night and had some greenish drainage noted from end of toenail. No present drainage present. NEURO: No focal deficits. Alert and oriented x3. Course Course Emergency Course: Patient is aware of diagnosis, understands and agrees to treatment plan. Anticipatory guidance given. Patient agrees to follow-up as directed and is aware of reasons to seek care at the emergency department. Portions of this record may have been created with voice recognition software Level of Care: Express Care Visit Vital Signs Vital signs: Vital Signs Temperature 36.4 C L 02/22/25 12:48 Pulse Rate 98 02/22/25 12:48 Respiratory Rate 18 02/22/25 12:48 Blood Pressure 110/66 02/22/25 12:48 Pulse Oximetry 98 02/22/25 12:48 Oxygen Delivery Room Air 02/22/25 12:48 Temperature 36.4 C L 02/22/25 12:48 Pulse Rate 98 02/22/25 12:48 Respiratory Rate 18 02/22/25 12:48 Blood Pressure 110/66 02/22/25 12:48 Pulse Oximetry 98 02/22/25 12:48 Oxygen Delivery Room Air 02/22/25 12:48 Reviewed MDM - Skin/Abscess/Foreign Bdy MDM Narrative Medical decision making narrative: Does not appear at this time to be erythema multiforme, bullous, SJS, TEN; no evidence at this time to suggest RMSF, endocarditis or Lyme disease; patient looks well, nontoxic and is tolerating oral intake; no neurologic signs or symptoms; no headache, photophobia or neck pain; afebrile; appropriate for initial outpatient treatment; discussed the importance of follow-up, patient agrees. Patient does not have history of penetrating trauma, laceration, blunt trauma, recent surgery, immunosuppression, malignancy, obesity, alcoholism, corticosteroid use. Question cellulitis, necrotizing soft tissue infection, abscess. Differential Diagnosis Differential diagnosis: Likely abscess of skin or subcutaneous tissue, cellulitis, contact dermatitis and other (paronychia left great toe) Medical Records Attestation: I reviewed the patient's medical records. Critical Care Time Critical Care Time Critical Care Time: No Discharge Plan Discharge Clinical Impression: Paronychia of great toe, left Patient Disposition: Home Condition: Stable Instructions: Antibiotic Form, Paronychia (ED) Additional Instructions: Soak left foot in warm soapy water twice daily and apply Mupiricin in ointment watch for increasing infection--redness, swelling, drainage Tylenol or Ibuprpfen for any fever or pain follow up with PCP in 7-10 days for a wound check recheck if develop fever, chills, increasing symptom Go to the ER if your symptoms become worse of if ANY new symptoms develop Antibiotic as prescribed till all completed If your symptoms persist, change or worsen significantly before you can contact your personal physician then please, without delay, go to the emergency department for further evaluation. Follow-up with PCP in 7-10 days or sooner if needed Patient Language: Vietnamese Prescriptions: New mupirocin [Centany] 2 % ointment 1 applic topical BID Qty: 22 0RF Rx Instructions: left toe cephalexin 500 mg capsule 500 mg PO Q8H Qty: 30 0RF No Action sertraline 50 mg tablet Follow-up/Referrals: PHYSICIAN,ELECTRONICS TECHNOLOGY DEPARTMENT CHAIR [Primary Care Provider, Internal Medicine] Time of Disposition: 13:32 Quality [place] Coma Scale Eyes: Open Verbal: Oriented and Alert Motor: Follows Commands [place] Coma Total Score: 15
== END 2025-02-22 13:35 | disposition home or self-care (01) ==
PROVIDERS: Emergency Provider Registered Nurse
DX: L03.032 Cellulitis of left toe (principal); Z87.891 Personal history of nicotine dependence
CPT/HCPCS: 99213; G0463

== ENCOUNTER 2025-04-18 11:30 | Emergency (ER) | payer OTHER, SELFPAY ==
[2025-04-18 11:36] VITALS: BP 128/84; PULSE 88; RESP 18; TEMP 36.3; O2SAT 98
--- NOTE | 2025-04-18 11:54 | ED.EAR ---
HPI - Ear Problem General Chief complaint: Ear Stated complaint: RT Ear Pain Source: patient and family (daughter) Mode of arrival: ambulatory Limitations: no limitations History of Present Illness HPI Narrative: 19-year-old female presents to [facility] with pain to her right ear for the past 2-3 days. Patient denies drainage, fever, body aches, chills, cough, congestion runny nose. Patient reports that her last ear infection was in middle school. Patient has been taking [id number] Motrin with little relief. Patient denies injury to her ear. Patient is . MD Complaint: ear pain Location: right ear Relieving factors: nothing Exacerbating factors: chewing and palpation Treatment prior to arrival: oral analgesic Related Data Home Medications ?Medication ?Instructions ?Recorded ?Confirmed ?Last Taken ?Type sertraline 50 mg tablet mg 01/06/25 Unknown History Allergies Allergy/AdvReac Type Severity Reaction Status Date / Time banana Allergy Mild Rash Verified 04/18/25 11:37 Review of Systems Constitutional: Constitutional: Denies chills, Denies fatigue, Denies fever(s) and Denies weakness ENT: Denies vertigo, Denies dizziness, Denies epistaxis, Denies nasal congestion and Denies sore throat Comments: Right ear pain Respiratory: Respiratory: Denies cough, Denies dyspnea and Denies wheezing Gastrointestinal: Gastrointestinal: Denies diarrhea, Denies nausea and Denies vomiting Musculoskeletal: Musculoskeletal: Denies arthralgias and Denies joint swelling Integumentary/Breasts: Skin/Breast: Denies erythema and Denies rash Neurologic: Denies vertigo, Denies dizziness, Denies syncope and Denies headache(s) [facility] Past Medical History Medical History Ear infection Strep throat Post depression No significant past medical history Surgical History Surgical History Status post wisdom tooth extraction No significant past surgical history Social History Social History Smoking status: Former smoker Alcohol intake: never Substance use: never Do You Feel Safe in your Home?: Yes Lack of Transportation: No Lack of Food: Never True Current Housing: I Have Housing Concerned About Future Housing: No Difficulty Paying Gas/Electric Bills: No Difficulty Paying for Meds: No Currently Unemployed: No Education: High School Diploma/GED Difficulty w/ Childcare or Family Care: No Gender identity (if verbalized by the patient): Female Spiritual care concerns: No Comments At time of signature, I agree with nursing past medical, surgical, social and family history. There is no relevant family history pertinent to the presenting complaint. Exam Const: General: healthy appearing and no acute distress Nutritional Appearance: well nourished Orientation/consciousness: patient oriented x3 Limitations: no limitations HENMT: Head: normal to inspection Ears: external ears normal, Abnormal EAC present erythema on the right and edema on the right and TM abnormal dull on the right and erythematous on the right Neck: Neck: normal visual inspection Resp: Effort & Inspection: normal respiratory effort and not labored Auscultation: clear to auscultation bilaterally, no crackles, no rales, no rhonchi and no wheezes Cardio: Rate: regular rate Rhythm: regular rhythm Heart sounds: no murmurs Skin: General skin exam: normal color Rashes: no rashes Wounds: no wounds Neuro: General: patient oriented x3 and moves all extremities Speech: normal speech Gait exam (Neuro): Normal gait present Extrem: General: normal to inspection Psych: Affect: normal affect Attitude: cooperative Course Course Level of Care: Express Care Visit Vital Signs Vital signs: Vital Signs Temperature 36.3 C L 04/18/25 11:36 Pulse Rate 88 04/18/25 11:36 Respiratory Rate 18 04/18/25 11:36 Blood Pressure 128/84 04/18/25 11:36 Pulse Oximetry 98 04/18/25 11:36 Oxygen Delivery Room Air 04/18/25 11:36 Temperature 36.3 C L 04/18/25 11:36 Pulse Rate 88 04/18/25 11:36 Respiratory Rate 18 04/18/25 11:36 Blood Pressure 128/84 04/18/25 11:36 Pulse Oximetry 98 04/18/25 11:36 Oxygen Delivery Room Air 04/18/25 11:36 Medical Decision Making MDM Narrative Medical decision making narrative: Educated patient to alternate Motrin and Tylenol as needed; educated patient to take antibiotic and use ear drops as prescribed. Educated patient follow-up with primary care provider if symptoms do not improve Differential Diagnosis Differential Diagnosis: Cerumen impaction, acute otalgia, viral illness Vital Signs Vital Signs: Vital Signs Temperature 36.3 C L 04/18/25 11:36 Pulse Rate 88 04/18/25 11:36 Respiratory Rate 18 04/18/25 11:36 Blood Pressure 128/84 04/18/25 11:36 Pulse Oximetry 98 04/18/25 11:36 Oxygen Delivery Room Air 04/18/25 11:36 Temperature 36.3 C L 04/18/25 11:36 Pulse Rate 88 04/18/25 11:36 Respiratory Rate 18 04/18/25 11:36 Blood Pressure 128/84 04/18/25 11:36 Pulse Oximetry 98 04/18/25 11:36 Oxygen Delivery Room Air 04/18/25 11:36 Critical Care Time Critical Care Time Critical Care Time: No Discharge Plan Discharge Clinical Impression: Otitis externa Qualifiers: Otitis externa type: unspecified type Chronicity: acute Laterality: right Qualified Code(s): H60.501 - Unspecified acute noninfective otitis externa, right ear Otitis media Qualifiers: Otitis media type: unspecified Chronicity: acute Qualified Code(s): H66.90 - Otitis media, unspecified, unspecified ear Patient Disposition: Home Condition: Stable Instructions: Antibiotic Form, Ear Infection (ED) Additional Instructions: Avoid getting water in ear [id number] Motrin or Tylenol as needed for pain Use ear drops as prescribed Take oral antibiotic as prescribed Follow-up with primary care provider if symptoms not improved Patient Language: Malian Prescriptions: New amoxicillin 875 mg tablet 875 mg PO Q12H 10 Days Qty: 20 0RF ofloxacin 0.3 % drops 5 drp EACH EAR BID 7 Days Qty: 5 0RF No Action mupirocin [Centany] 2 % ointment 1 applic topical BID Qty: 22 0RF Rx Instructions: left toe sertraline 50 mg tablet Follow-up/Referrals: PHYSICIAN,DISPATCH CLERK [Primary Care Provider, Internal Medicine] Time of Disposition: 12:00
== END 2025-04-18 12:02 | disposition home or self-care (01) ==
PROVIDERS: Emergency Provider Nurse Practitioner Family
DX: H60.501 Unspecified acute noninfective otitis externa, right ear (principal); H66.91 Otitis media, unspecified, right ear; Z87.891 Personal history of nicotine dependence
CPT/HCPCS: 99213; G0463

== ENCOUNTER 2025-05-07 17:50 | Emergency (ER) | payer OTHER, SELFPAY ==
--- NOTE | ~2025-05-07 | XR_ITS ---
XR elbow RT min 3V 05/07/2025 18:08 INDICATION: Right elbow pain PROCEDURE: 3 views right elbow COMPARISON: No prior studies for comparison. FINDINGS: Fracture, dislocation or subluxation is not identified. The soft tissues appear within normal limits. No foreign bodies are identified. IMPRESSION: 1: NO ACUTE BONE OR JOINT ABNORMALITY IDENTIFIED. Reviewed, dictated and finalized at location I. [employer]LE [employer]ER
[2025-05-07 18:08] VITALS: BP 109/70; PULSE 82; RESP 16; TEMP 36.2; O2SAT 100
--- NOTE | 2025-05-07 18:58 | ED.UPPEXIN ---
HPI - Extremity Injury (Upper) General Chief Complaint: Extremity Injury, Upper Stated Complaint: INJURED R ELBOW Time Seen by Provider: 05/07/25 18:40 Source: patient and RN notes reviewed Mode of arrival: ambulatory Limitations: no limitations History of Present Illness HPI narrative: 19-year-old female presents to the [facility] complaining of right elbow injury approximately 7 days ago. Patient says she was on a swing with her daughter when the chain broken she fell injuring her right elbow. Patient denies any her head, loss of consciousness, neck pain, back pain, or any other injuries. Patient continues to have pain with movement of her right elbow. Patient Denies any swelling or bruising. Patient denies any significant past medical history. Related Data Home Medications ?Medication ?Instructions ?Recorded ?Confirmed ?Last Taken ?Type sertraline 50 mg tablet mg 01/06/25 Unknown History Allergies Allergy/AdvReac Type Severity Reaction Status Date / Time banana Allergy Mild Rash Verified 04/18/25 11:37 Review of Systems Review of Systems: CONSTITUTIONAL: Denies fever, chills, or sweats. EYES: Denies visual changes, redness, or discharge. ENT: Denies rhinorrhea, congestion, sore throat, or otalgia. CARDIOVASCULAR: Denies chest pain, palpitations, or edema. RESPIRATORY: Denies cough or dyspnea. GASTROINTESTINAL: Denies abdominal pain, nausea, vomiting, or diarrhea. GENITOURINARY: Denies dysuria or hematuria. SKIN: Denies rash, wound, or itching. MUSCULOSKELETAL: Denies back pain, joint pain, or myalgia. Positive for right elbow injury NEUROLOGIC: Denies headache, numbness, or weakness. PSYCHIATRIC: Denies anxiety or depression. All other systems reviewed are negative, except as documented in HPI. [facility] Past Medical History Medical History Ear infection Strep throat Post depression No significant past medical history Surgical History Surgical History Status post wisdom tooth extraction No significant past surgical history Social History Social History Smoking status: Former smoker Alcohol intake: never Substance use: never Lack of Transportation: No Lack of Food: Never True Current Housing: I Have Housing Concerned About Future Housing: No Difficulty Paying Gas/Electric Bills: No Difficulty Paying for Meds: No Currently Unemployed: No Education: High School Diploma/GED Difficulty w/ Childcare or Family Care: No Gender identity (if verbalized by the patient): Female Spiritual care concerns: No Comments At the time of my signature, I reviewed and agree with the nursing past medical, surgical, social, and family history. There is no relevant family history pertinent to the patient complaint. Exam Narrative: GENERAL: This is a well-nourished, well-developed adult, in no apparent distress. They are non ill-appearing, nontoxic appearing. HEAD: normocephalic, atraumatic. EYES: Sclera clear/white. Vision is grossly intact. Conjunctiva normal. Extraocular movement intact. EARS: External ears normal Hearing grossly intact. NOSE: External nose normal THROAT: Mucous membranes moist NECK: Neck supple CARDIOVASCULAR: Regular rate and rhythm RESPIRATORY: Respiratory rate normal, respiratory effort nonlabored, no respiratory distress NEURO: awake, alert, and oriented to person, place and time. There were no obvious focal neurologic abnormalities. EXTREMITIES: No obvious deformity, injury, swelling, bruising, redness. Pain through full range of motion. No bony tenderness. Capillary refill less than 3 seconds. Right pedal Pulse 2 +palpable. Normal sensation. Neurovascular status intact distal injury. Radial, ulnar, median nerve distribution intact. BACK: Nontender without deformity. Course Course Level of Care: Express Care Visit Vital Signs Vital signs: Vital Signs Temperature 97.2 F L 05/07/25 18:08 Pulse Rate 82 05/07/25 18:08 Respiratory Rate 16 05/07/25 18:08 Blood Pressure 109/70 05/07/25 18:08 Pulse Oximetry 100 05/07/25 18:08 Temperature 97.2 F L 05/07/25 18:08 Pulse Rate 82 05/07/25 18:08 Respiratory Rate 16 05/07/25 18:08 Blood Pressure 109/70 05/07/25 18:08 Pulse Oximetry 100 05/07/25 18:08 [facility] MDM Narrative Medical decision making narrative: X-ray right elbow negative for any fractures or acute findings. Likely contusion. Given Michael wrap for comfort for compression. Discussed physical exam findings. Advised supportive measures and signs/symptoms to go to the ER. Pt is appropriate for outpt treatment and f/u. Differential Diagnosis Differential Diagnosis: Elbow contusion, elbow sprain, elbow fracture Imaging Data Radiologist's impression: ITS Impressions Elbow X-Ray 05/07/25 18:09 IMPRESSION: 1: NO ACUTE BONE OR JOINT ABNORMALITY IDENTIFIED. Critical Care Time Critical Care Time Critical Care Time: No Discharge Plan Discharge Clinical Impression: Injury of elbow, right Qualifiers: Encounter type: initial encounter Qualified Code(s): S59.901A - Unspecified injury of right elbow, initial encounter Patient Disposition: Home Condition: Stable Instructions: Elbow Strain (ED) Additional Instructions: The x-ray of the right able is negative for any fractures or acute findings. Rest and elevate the elbow, uses tolerated. Apply ice 15-20 minute intervals several times a day Keep it wrapped with MICHAEL or use a elbow brace You may take ibuprofen 600 mg to 800 mg every 6-8 hours. Do not exceed more than 800 mg of ibuprofen per dose. Do not exceed more than 3200 mg ibuprofen in a day. You may take up to 1000 mg Tylenol every 6-8 hours. Do not exceed 1000 mg per dose, do exceed more than 4000 mg of Tylenol in a day. Follow up with your primary care provider orthopedist as needed in 1-2 weeks especially with pain is persisting after 10 days. Patient Language: [place] Arabian Prescriptions: No Action mupirocin [Centany] 2 % ointment 1 applic topical BID Qty: 22 0RF Rx Instructions: left toe amoxicillin 875 mg tablet 875 mg PO Q12H 10 Days Qty: 20 0RF ofloxacin 0.3 % drops 5 drp EACH EAR BID 7 Days Qty: 5 0RF sertraline 50 mg tablet Follow-up/Referrals: PHYSICIAN,SYSTEM OPERATION SUPERINTENDENT [Primary Care Provider, Internal Medicine] Raul Matthew MD [Physician, Orthopedics] Time of Disposition: 18:56
== END 2025-05-07 19:00 | disposition home or self-care (01) ==
DX: S59.901A Unspecified injury of right elbow, initial encounter (principal); W09.1XXA Fall from playground swing, initial encounter; Z87.891 Personal history of nicotine dependence; F32.A Depression, unspecified
CPT/HCPCS: 73080; 99213; G0463